=== PATIENT | female | born 1970 | race Caucasian/White ===

== ENCOUNTER 2018-12-06 10:44 | Emergency (ER) | payer OTHER ==
[2018-12-06] MEDS ORDERED: Aspirin 81 MG Tab.Chew PO ONE (10:49)
--- NOTE | 2018-12-06 10:50 | EDM.PDOC ---
ED HPI GENERAL MEDICAL PROBLEM - General Stated Complaint: chest pain Time Seen by Provider: 12/06/18 10:49 Source of Information: Reports: Patient - History of Present Illness INITIAL COMMENTS - FREE TEXT/NARRATIVE: HISTORY AND PHYSICAL: History of present illness: [Patient presents with right-sided chest pain which began yesterday she rates 7 out of 10 radiating to the back no fever nausea vomiting chills sweats no shortness breath or diaphoresis no headache dizziness or palpitation no bowel or urine symptoms, and is worsened by movement of the right arm Patient does not know of any injury or trauma however pain began yesterday morning after waking up from sleep her right side is hurting more as she tends to sleep on her right side left side also has discomfort with movement of the arm and around to her back with palpation of both shoulder girdles and pectoralis major I can reproduce symptoms She is allergic to aspirin ] Review of systems: As per history of present illness and below otherwise all systems reviewed and negative. Past medical history: As per history of present illness and as reviewed below otherwise noncontributory. Surgical history: As per history of present illness and as reviewed below otherwise noncontributory. Social history: No reported history of drug or alcohol abuse. Family history: As per history of present illness and as reviewed below otherwise noncontributory. Physical exam: HEENT: Atraumatic, normocephalic, pupils reactive, negative for conjunctival pallor or scleral icterus, mucous membranes moist, throat clear, neck supple, nontender, trachea midline. Lungs: Clear to auscultation, breath sounds equal bilaterally, chest tender over pectoralis major on the right Heart: S1S2, regular, negative for clicks, rubs, or JVD. Abdomen: Soft, nondistended, nontender. Negative for masses or hepatosplenomegaly. Negative for costovertebral tenderness. Pelvis: Stable nontender. Genitourinary: Deferred. Rectal: Deferred. Extremities: Atraumatic, negative for cords or calf pain. Neurovascular unremarkable. Neuro: Awake, alert, oriented. Cranial nerves II through XII unremarkable. Cerebellum unremarkable. Motor and sensory unremarkable throughout. Exam nonfocal. Diagnostics: [CBC CMP UA troponin lipase EKG Chest 1 view ] Therapeutics: [ normal saline Aspirin 324 mg chewable Toradol 30 mg IV Tramadol ] Impression: Musculoskeletal skeletal pain Definitive disposition and diagnosis as appropriate pending reevaluation and review of above. chest Pain Score (Numeric/FACES): 10 - Related Data Allergies Allergy/AdvReac Type Severity Reaction Status Date / Time acetaminophen Allergy Vomiting Verified 12/06/18 10:50 [From Tylenol-Codeine #3] aspirin Allergy Vomiting Verified 12/06/18 10:50 codeine Allergy Vomiting Verified 12/06/18 10:50 [From Tylenol-Codeine #3] Home Meds: Home Meds Methocarbamol 750 mg PO BID 12/06/18 [History] traMADol HCl [Tramadol HCl] 50 mg PO Q6HR PRN 12/06/18 [History] ED ROS GENERAL - Review of Systems Review Of Systems: See Below ED EXAM, GENERAL - Physical Exam Exam: See Below Course - Vital Signs Last Recorded V/S: Last Vital Signs Temp 98 F 12/06/18 10:50 Pulse 94 12/06/18 10:50 Resp 18 12/06/18 10:50 BP 121/53 L 12/06/18 10:50 Pulse Ox 95 12/06/18 10:50 - Orders/Labs/Meds Orders: Active Orders 24 hr Category Date Time Status EKG Documentation Completion [RC] STAT Care 12/06/18 10:48 Active Chest 1V Frontal [CR] Stat Exams 12/06/18 10:48 Taken UA RFX ZULEYKA AND CULT IF INDIC [URIN] Stat Lab 12/06/18 10:48 Ordered Sodium Chloride 0.9% [Normal Saline] 1,000 ml Med 12/06/18 11:00 Active IV STAT Medication Orders Sodium Chloride (Normal Saline) 1,000 mls @ 125 mls/hr IV STAT LEIGH ANN Last Admin: 12/06/18 10:58 Dose: 125 mls/hr Labs: Laboratory Tests 12/06/18 12/06/18 12/06/18 Range/Units 10:56 10:56 10:56 WBC 8.98 (4.0-11.0) K/uL RBC 5.23 (4.30-5.90) M/uL Hgb 15.8 (12.0-16.0) g/dL Hct 47.5 H (36.0-46.0) % MCV 90.8 (80.0-98.0) fL MCH 30.2 (27.0-32.0) pg MCHC 33.3 (31.0-37.0) g/dL RDW Std Deviation 46.9 (28.0-62.0) fl RDW Coeff of Anthony 14 (11.0-15.0) % Plt Count 256 (150-400) K/uL MPV 9.10 (7.40-12.00) fL Neut % (Auto) 61.5 (48.0-80.0) % Lymph % (Auto) 26.6 (16.0-40.0) % [place] % (Auto) 8.8 (0.0-15.0) % Eos % (Auto) 3.0 (0.0-7.0) % Baso % (Auto) 0.1 (0.0-1.5) % Neut # (Auto) 5.5 (1.4-5.7) K/uL Lymph # (Auto) 2.4 (0.6-2.4) K/uL [place] # (Auto) 0.8 (0.0-0.8) K/uL Eos # (Auto) 0.3 (0.0-0.7) K/uL Baso # (Auto) 0.0 (0.0-0.1) K/uL Nucleated RBC % 0.0 /100WBC Nucleated RBCs # 0 K/uL INR 1.03 Sodium 137 (136-145) mmol/L Potassium 4.5 (3.5-5.1) mmol/L Chloride 101 (98-107) mmol/L Carbon Dioxide 28.1 (21.0-32.0) mmol/L BUN 9 (7.0-18.0) mg/dL Creatinine 0.7 (0.6-1.0) mg/dL Est Cr Clr Drug Dosing 117.94 mL/min Estimated GFR (MDRD) > 60.0 ml/min Glucose 95 (74-106) mg/dL Calcium 9.2 (8.5-10.1) mg/dL Total Bilirubin 0.7 (0.2-1.0) mg/dL AST 13 L (15-37) IU/L ALT 24 (14-63) IU/L Alkaline Phosphatase 70 (46-116) U/L Troponin I < 0.050 (0.000-0.056) ng/mL Total Protein 8.0 (6.4-8.2) g/dL Albumin 4.0 (3.4-5.0) g/dL Globulin 4.0 (2.6-4.0) g/dL Albumin/Globulin Ratio 1.0 (0.9-1.6) Lipase 88 (73-393) U/L Meds: Medications Generic Name Dose Route Start Last Admin Trade Name Freq PRN Reason Stop Dose Admin Sodium Chloride 1,000 mls @ 125 mls/hr 12/06/18 11:00 12/06/18 10:58 Normal Saline IV 125 mls/hr STAT LEIGH ANN Administration Discontinued Medications Generic Name Dose Route Start Last Admin Trade Name Freq PRN Reason Stop Dose Admin Aspirin 324 mg 12/06/18 10:49 12/06/18 10:58 Aspirin PO 12/06/18 10:50 Not Given ONETIME ONE Ketorolac Tromethamine 30 mg 12/06/18 11:41 12/06/18 11:57 Toradol IVPUSH 12/06/18 11:42 30 mg ONETIME ONE Administration Departure - Departure Time of Disposition: 12:00 Disposition: Home, Self-Care 01 Condition: Good Clinical Impression: Musculoskeletal pain - Discharge Information Referrals: PCP,Unknown [Primary Care Provider] - Additional Instructions: The following information is given to patients seen in the emergency department who are being discharged to home. This information is to outline your options for follow-up care. We provide all patients seen in our emergency department with a follow-up referral. The need for follow-up, as well as the timing and circumstances, are variable depending upon the specifics of your emergency department visit. If you don't have a primary care physician on staff, we will provide you with a referral. We always advise you to contact your personal physician following an emergency department visit to inform them of the circumstance of the visit and for follow-up with them and/or the need for any referrals to a consulting specialist. The emergency department will also refer you to a specialist when appropriate. This referral assures that you have the opportunity for follow-up care with a specialist. All of these measure are taken in an effort to provide you with optimal care, which includes your follow-up. Under all circumstances we always encourage you to contact your private physician who remains a resource for coordinating your care. When calling for follow-up care, please make the office aware that this follow-up is from your recent emergency room visit. If for any reason you are refused follow-up, please contact the [facility] emergency department at and asked to speak to the emergency department charge nurse. - My Orders Last 24 Hours: My Active Orders 12/06/18 10:48 EKG Documentation Completion [RC] STAT Chest 1V Frontal [CR] Stat UA RFX ZULEYKA AND CULT IF INDIC [URIN] Stat 12/06/18 11:00 Sodium Chloride 0.9% [Normal Saline] 1,000 ml IV STAT - Assessment/Plan Last 24 Hours: My Active Orders 12/06/18 10:48 EKG Documentation Completion [RC] STAT Chest 1V Frontal [CR] Stat UA RFX ZULEYKA AND CULT IF INDIC [URIN] Stat 12/06/18 11:00 Sodium Chloride 0.9% [Normal Saline] 1,000 ml IV STAT
[2018-12-06] MEDS ORDERED: Sodium Chloride 0.9% 1,000 ML IV SCH (11:00)
[2018-12-06 11:40] LABS: CHLORIDE,CL 101 mmol/L (98-107); SODIUM,NA 137 mmol/L (136-145)
[2018-12-06] MEDS ORDERED: Ketorolac 30 MG/ML SDV IVPUSH ONE (11:41)
--- NOTE | 2018-12-06 12:27 | CR ---
INDICATION: Chest pain COMPARISON: none TECHNIQUE: Portable AP semi-erect chest performed at 11:22 a.m. FINDINGS: The lungs are clear. There is no evidence of pneumothorax. The heart, mediastinum and pulmonary vessels are of normal size. There is no evidence of pleural fluid. IMPRESSION: Negative chest. Dictated by Mark Caro MD @ Dec 06 2018 12:24PM Signed by Dr. Mark Caro @ Dec 06 2018 12:25PM
== END 2018-12-06 12:21 | disposition home or self-care (01) ==
LOC: MW.ED 10:44
DX: R07.89 Other chest pain (principal); Z88.8 Allergy status to other drugs, medicaments and biological substances; Z88.5 Allergy status to narcotic agent; Z79.899 Other long term (current) drug therapy
CPT/HCPCS: 36415; 71045; 80053; 83690; 84484; 85025; 85610; 96361; 96374; 99285; J1885; J7040; 99284

== ENCOUNTER 2020-05-16 09:20 | Emergency (ER) | payer OTHER ==
--- NOTE | 2020-05-16 09:35 | EDM.PDOC ---
ED HPI GENERAL MEDICAL PROBLEM - General Chief Complaint: Gastrointestinal Problem Stated Complaint: VOMITING Time Seen by Provider: 05/16/20 09:21 Source of Information: Reports: Patient History Limitations: Reports: No Limitations - History of Present Illness INITIAL COMMENTS - FREE TEXT/NARRATIVE: 49F PSHx cholecystectomy presents for abdominal cramping pain and N/V. Symptoms x3-4 days worsening. Notes inability to tolerate PO liquids or solids. Will vomit minutes after attempting PO liquids. Notes initial diarrhea but now no BM or passing gas x2 days. No h/o obstruction. No urinary symptoms Generalized Pain Score (Numeric/FACES): 4 - Related Data Allergies Allergy/AdvReac Type Severity Reaction Status Date / Time acetaminophen Allergy Vomiting Verified 05/16/20 09:44 [From Tylenol-Codeine #3] aspirin Allergy Vomiting Verified 05/16/20 09:44 codeine Allergy Vomiting Verified 05/16/20 09:44 [From Tylenol-Codeine #3] Home Meds: Home Meds methocarbamoL [Methocarbamol] 1,500 mg PO TID PRN 12/06/18 [History] traMADol HCl [Tramadol HCl] 50 mg PO Q6HR PRN 12/06/18 [History] Ondansetron [Zofran ODT] 4 mg PO Q6H PRN #10 tab.dis 05/16/20 [Rx] Sulfamethoxazole/Trimethoprim [Bactrim Ds Tablet] 1 each PO BID 7 Days #14 tablet 05/16/20 [Rx] Past Medical History [facility]ORCH [facility]URNER History: Reports: - Infectious Disease History Infectious Disease History: Reports: Chicken Pox - Past Surgical History GI Surgical History: Reports: Colonoscopy Female Surgical History: Reports: Section Other Female Surgeries/Procedures: cyst removal. Other Musculoskeletal Surgeries/Procedures:: knee surgery Social & Family History - Family History Family Medical History: Noncontributory ED ROS GENERAL - Review of Systems Review Of Systems: Comprehensive ROS is negative, except as noted in HPI. ED EXAM, GI/ABD - Physical Exam Exam: See Below Exam Limited By: No Limitations General Appearance: Alert, WD/WN, No Apparent Distress Ears: Normal External Exam Nose: Normal Inspection Throat/Mouth: Normal Inspection, Normal Voice, No Airway Compromise Head: Atraumatic, Normocephalic Neck: Normal Inspection Respiratory/Chest: No Respiratory Distress, Lungs Clear, Normal Breath Sounds, No Accessory Muscle Use Cardiovascular: Normal Peripheral Pulses, Regular Rate, Rhythm GI/Abdominal Exam: Soft, No Distention, Other (diffuse TTP without guarding/rebound ) Extremities: Normal Inspection Neurological: Alert Psychiatric: Normal Affect, Normal Mood Course - Vital Signs Last Recorded V/S: Last Vital Signs Temp 97.0 F 05/16/20 09:45 Pulse 76 05/16/20 13:00 Resp 15 05/16/20 13:00 BP 110/64 05/16/20 13:00 Pulse Ox 98 05/16/20 13:00 - Orders/Labs/Meds Orders: Active Orders 24 hr Category Date Time Status Sodium Chloride 0.9% [Saline Flush] Med 05/16/20 10:04 Active 10 ml FLUSH ASDIRECTED PRN Sodium Chloride 0.9% [Saline Flush] Med 05/16/20 10:04 Active 2.5 ml FLUSH ASDIRECTED PRN Saline Lock Insert [OM.PC] Stat Oth 05/16/20 10:04 Ordered Medication Orders Sodium Chloride (Saline Flush) 10 ml FLUSH ASDIRECTED PRN PRN Reason: Keep Vein Open Last Admin: 05/16/20 10:21 Dose: 10 ml Documented by: JANIYA Sodium Chloride (Saline Flush) 2.5 ml FLUSH ASDIRECTED PRN PRN Reason: Keep Vein Open Last Admin: 05/16/20 10:21 Dose: 2.5 ml Documented by: JANIYA Labs: Laboratory Tests 05/16/20 05/16/20 05/16/20 Range/Units 09:55 10:15 10:15 WBC 5.22 (4.0-11.0) K/uL RBC 5.07 (4.30-5.90) M/uL Hgb 16.0 (12.0-16.0) g/dL Hct 45.0 (36.0-46.0) % MCV 88.8 (80.0-98.0) fL MCH 31.6 (27.0-32.0) pg MCHC 35.6 (31.0-37.0) g/dL RDW Std Deviation 42.4 (28.0-62.0) fl RDW Coeff of Anthony 13 (11.0-15.0) % Plt Count 199 (150-400) K/uL MPV 10.40 (7.40-12.00) fL Neut % (Auto) 67.0 (48.0-80.0) % Lymph % (Auto) 18.4 (16.0-40.0) % [place] % (Auto) 14.4 (0.0-15.0) % Eos % (Auto) 0.0 (0.0-7.0) % Baso % (Auto) 0.2 (0.0-1.5) % Neut # (Auto) 3.5 (1.4-5.7) K/uL Lymph # (Auto) 1.0 (0.6-2.4) K/uL [place] # (Auto) 0.8 (0.0-0.8) K/uL Eos # (Auto) 0.0 (0.0-0.7) K/uL Baso # (Auto) 0.0 (0.0-0.1) K/uL Nucleated RBC % 0.0 /100WBC Nucleated RBCs # 0 K/uL Lactate 1.9 (0.20-2.00) mmol/L Sodium (136-145) mmol/L Potassium (3.5-5.1) mmol/L Chloride (98-107) mmol/L Carbon Dioxide (21.0-32.0) mmol/L BUN (7.0-18.0) mg/dL Creatinine (0.6-1.0) mg/dL Est Cr Clr Drug Dosing mL/min Estimated GFR (MDRD) ml/min Glucose (74-106) mg/dL Calcium (8.5-10.1) mg/dL Magnesium (1.8-2.4) mg/dL Total Bilirubin (0.2-1.0) mg/dL AST (15-37) IU/L ALT (14-63) IU/L Alkaline Phosphatase (46-116) U/L Total Protein (6.4-8.2) g/dL Albumin (3.4-5.0) g/dL Globulin (2.6-4.0) g/dL Albumin/Globulin Ratio (0.9-1.6) Lipase (73-393) U/L Urine Color DARK YELLOW Urine Appearance SLT CLOUDY Urine pH 6.0 (5.0-8.0) Ur Specific [place] >= 1.030 (1.001-1.035) Urine Protein 30 H (NEGATIVE) mg/dL Urine Glucose (UA) NEGATIVE (NEGATIVE) mg/dL Urine Ketones 40 H (NEGATIVE) mg/dL Urine Occult Blood TRACE-INTACT H (NEGATIVE) Urine Nitrite POSITIVE H (NEGATIVE) Urine Bilirubin MODERATE H (NEGATIVE) Urine Ictotest NEGATIVE Urine Urobilinogen 1.0 (<2.0) EU/dL Ur Leukocyte Esterase TRACE H (NEGATIVE) Urine RBC 0-5 (0-2/HPF) Urine WBC 5-10 (0-5/HPF) Ur Epithelial Cells MANY (NONE-FEW) Urine Bacteria 3+ H (NEGATIVE) 05/16/20 Range/Units 11:24 WBC (4.0-11.0) K/uL RBC (4.30-5.90) M/uL Hgb (12.0-16.0) g/dL Hct (36.0-46.0) % MCV (80.0-98.0) fL MCH (27.0-32.0) pg MCHC (31.0-37.0) g/dL RDW Std Deviation (28.0-62.0) fl RDW Coeff of Anthony (11.0-15.0) % Plt Count (150-400) K/uL MPV (7.40-12.00) fL Neut % (Auto) (48.0-80.0) % Lymph % (Auto) (16.0-40.0) % [place] % (Auto) (0.0-15.0) % Eos % (Auto) (0.0-7.0) % Baso % (Auto) (0.0-1.5) % Neut # (Auto) (1.4-5.7) K/uL Lymph # (Auto) (0.6-2.4) K/uL [place] # (Auto) (0.0-0.8) K/uL Eos # (Auto) (0.0-0.7) K/uL Baso # (Auto) (0.0-0.1) K/uL Nucleated RBC % /100WBC Nucleated RBCs # K/uL Lactate (0.20-2.00) mmol/L Sodium 138 (136-145) mmol/L Potassium 3.5 (3.5-5.1) mmol/L Chloride 101 (98-107) mmol/L Carbon Dioxide 26.9 (21.0-32.0) mmol/L BUN 15 (7.0-18.0) mg/dL Creatinine 0.7 (0.6-1.0) mg/dL Est Cr Clr Drug Dosing 116.63 mL/min Estimated GFR (MDRD) > 60.0 ml/min Glucose 114 H (74-106) mg/dL Calcium 8.3 L (8.5-10.1) mg/dL Magnesium 1.9 (1.8-2.4) mg/dL Total Bilirubin 0.4 (0.2-1.0) mg/dL AST 41 H (15-37) IU/L ALT 48 (14-63) IU/L Alkaline Phosphatase 54 (46-116) U/L Total Protein 7.4 (6.4-8.2) g/dL Albumin 3.5 (3.4-5.0) g/dL Globulin 3.9 (2.6-4.0) g/dL Albumin/Globulin Ratio 0.9 (0.9-1.6) Lipase 233 (73-393) U/L Urine Color Urine Appearance Urine pH (5.0-8.0) Ur Specific [place] (1.001-1.035) Urine Protein (NEGATIVE) mg/dL Urine Glucose (UA) (NEGATIVE) mg/dL Urine Ketones (NEGATIVE) mg/dL Urine Occult Blood (NEGATIVE) Urine Nitrite (NEGATIVE) Urine Bilirubin (NEGATIVE) Urine Ictotest Urine Urobilinogen (<2.0) EU/dL Ur Leukocyte Esterase (NEGATIVE) Urine RBC (0-2/HPF) Urine WBC (0-5/HPF) Ur Epithelial Cells (NONE-FEW) Urine Bacteria (NEGATIVE) Meds: Medications Generic Name Dose Route Start Last Admin Trade Name Freq PRN Reason Stop Dose Admin Sodium Chloride 10 ml 05/16/20 10:04 05/16/20 10:21 Saline Flush FLUSH 10 ml ASDIRECTED PRN Administration Keep Vein Open Sodium Chloride 2.5 ml 05/16/20 10:04 05/16/20 10:21 Saline Flush FLUSH 2.5 ml ASDIRECTED PRN Administration Keep Vein Open Discontinued Medications Generic Name Dose Route Start Last Admin Trade Name Freq PRN Reason Stop Dose Admin Ceftriaxone Sodium 1 gm 05/16/20 10:57 05/16/20 11:05 Rocephin IVPUSH 05/16/20 10:58 1 gm ONETIME ONE Administration Famotidine 20 mg 05/16/20 10:04 05/16/20 10:21 Pepcid IVPUSH 05/16/20 10:05 20 mg ONETIME ONE Administration Sodium Chloride 1,000 mls @ 999 mls/hr 05/16/20 10:04 05/16/20 10:21 Normal Saline IV 05/16/20 11:04 999 mls/hr .Bolus ONE Administration Sterile Water Confirm 05/16/20 11:01 05/16/20 11:05 Sterile Water For Injection Administered 05/16/20 11:02 2.1 mls/hr Dose Administration 20 mls @ as directed .ROUTE .STK-MED ONE Iopamidol 100 ml 05/16/20 12:56 05/16/20 12:57 Isovue Multipack-370 (76%) IVPUSH 05/16/20 12:57 100 ml ONETIME STA Administration Ondansetron HCl 4 mg 05/16/20 10:04 05/16/20 10:21 Zofran IVPUSH 05/16/20 10:05 4 mg ONETIME ONE Administration - Re-Assessments/Exams Free Text/Narrative Re-Assessment/Exam: 05/16/20 10:25 Will get labs, will treat symptomatically, will get CT to r/o SBO vs ileus vs other. 05/16/20 13:07 UA remarkable for nitrite positive UTI. CT is unremarkable. Patient feeling much better. Given 1x rocephin in ED. Will d/c with zofran and bactrim. SPoke with patient regarding diet including instructions for liquid diet then soft diet then transitioning to simple diet avoiding fried/fatty/spicy/tomato based foods. Patient understands. Departure - Departure Time of Disposition: 13:08 Disposition: Home, Self-Care 01 Condition: Good Clinical Impression: UTI, Urinary tract infectious disease - Discharge Information Prescriptions: Sulfamethoxazole/Trimethoprim [Bactrim Ds Tablet] 1 each PO BID 7 Days #14 tablet Ondansetron [Zofran ODT] 4 mg PO Q6H PRN #10 tab.dis PRN Reason: Nausea/Vomiting Instructions: Urinary Tract Infection, Adult, [id number] Referrals: Bill Duenas MD [Primary Care Provider] - Forms: ED Department Discharge Additional Instructions: The following information is given to patients seen in the emergency department who are being discharged to home. This information is to outline your options for follow-up care. We provide all patients seen in our emergency department with a follow-up referral. The need for follow-up, as well as the timing and circumstances, are variable depending upon the specifics of your emergency department visit. If you don't have a primary care physician on staff, we will provide you with a referral. We always advise you to contact your personal physician following an emergency department visit to inform them of the circumstance of the visit and for follow-up with them and/or the need for any referrals to a consulting specialist. The emergency department will also refer you to a specialist when appropriate. This referral assures that you have the opportunity for follow-up care with a specialist. All of these measure are taken in an effort to provide you with optimal care, which includes your follow-up. Under all circumstances we always encourage you to contact your private physician who remains a resource for coordinating your care. When calling for follow-up care, please make the office aware that this follow-up is from your recent emergency room visit. If for any reason you are refused follow-up, please contact the [facility] Emergency Department at and asked to speak to the emergency department charge nurse. Please follow up with your primary care physician. If you do not have a primary care physician, see below: [facility] [address] [place] [id number] [facility] [place] [address] [place] [id number] Sepsis Event Note (ED) - Focused Exam Vital Signs: Vital Signs Temp Pulse Resp BP Pulse Ox 05/16/20 13:00 76 15 110/64 98 05/16/20 10:56 73 15 124/95 H 96 05/16/20 09:45 97.0 F 88 14 123/76 96 - My Orders Last 24 Hours: My Active Orders 05/16/20 10:04 Sodium Chloride 0.9% [Saline Flush] 10 ml FLUSH ASDIRECTED PRN Sodium Chloride 0.9% [Saline Flush] 2.5 ml FLUSH ASDIRECTED PRN Saline Lock Insert [OM.PC] Stat - Assessment/Plan Last 24 Hours: My Active Orders 05/16/20 10:04 Sodium Chloride 0.9% [Saline Flush] 10 ml FLUSH ASDIRECTED PRN Sodium Chloride 0.9% [Saline Flush] 2.5 ml FLUSH ASDIRECTED PRN Saline Lock Insert [OM.PC] Stat
[2020-05-16] MEDS ORDERED: Sodium Chloride 0.9% 1,000 ML IV ONE (10:04)
[2020-05-16] MEDS ORDERED: Sodium Chloride 0.9% 2.5 ML Syringe FLUSH PRN (10:04)
[2020-05-16] MEDS ORDERED: Famotidine 20 MG/2 ML SDV IVPUSH ONE (10:04)
[2020-05-16] MEDS ORDERED: Ondansetron 4 MG/2 ML SDV IVPUSH ONE (10:04)
[2020-05-16] MEDS ORDERED: Sodium Chloride 0.9% 10 ML Syringe FLUSH PRN (10:04)
[2020-05-16] MEDS ORDERED: cefTRIAXone 1 GM Vial IVPUSH ONE (10:57)
[2020-05-16] MEDS ORDERED: Water For Injection, Sterile 20 ML ONE (11:01)
[2020-05-16 11:55] LABS: BLOOD UREA NITROGEN,BUN 15 mg/dL (7.0-18.0); CARBON DIOXIDE,CO2 26.9 mmol/L (21.0-32.0); CHLORIDE,CL 101 mmol/L (98-107); GLUCOSE RANDOM 114 mg/dL (74-106); LIPASE 233 U/L (73-393); POTASSIUM,K 3.5 mmol/L (3.5-5.1); SODIUM,NA 138 mmol/L (136-145)
[2020-05-16] MEDS ORDERED: Iopamidol 755 MG/ML 500 ML Multipack Bottle IVPUSH STA (12:56)
--- NOTE | 2020-05-16 13:01 | CT ---
CT abdomen and pelvis Technique: Multiple axial sections were obtained from above the dome of the diaphragm inferiorly through the pubic symphysis. Intravenous contrast was utilized. No oral contrast has been given. Comparison: No prior abdominal imaging is available. Findings: Several small parenchymal densities are seen with the left lung base. Minimal densities within the right middle lobe and right lower lung are also seen. Given the multifocal nature of these findings this raises the possibility of viral pneumonia. Lipoma appears to be present within the right paraspinal muscle measuring about 4.7 cm. Liver shows diffuse fatty infiltration. No focal abnormalities appreciated within the liver. Spleen appears within normal limits. Adrenal glands show no nodule. Pancreas shows no discrete abnormality. Both kidneys show symmetric contrast enhancement. Cyst is noted within the left kidney measuring 2.8 cm. Kidneys are otherwise unremarkable. Aorta shows no aneurysm. No retroperitoneal adenopathy or mesenteric abnormalities are seen. No pelvic mass or adenopathy is seen. Appendix not definitely visualized. Scoliosis and diffuse degenerative change is noted within the spine. Impression: 1. Small parenchymal densities within both lung bases. Given the multifocal nature of these findings, viral pneumonia is a possibility. Please correlate. 2. Fatty infiltration within the liver. Lipoma which is incidental within the right paraspinal muscle. 3. Nothing acute is otherwise appreciated. Diagnostic code #3 This report was dictated in MDT
== END 2020-05-16 13:47 | disposition home or self-care (01) ==
LOC: MW.ED 09:20
DX: N39.0 Urinary tract infection, site not specified (principal); Z88.6 Allergy status to analgesic agent; Z88.5 Allergy status to narcotic agent; Z79.899 Other long term (current) drug therapy
CPT/HCPCS: 36415; 74177; 80053; 81001; 83605; 83690; 83735; 85025; 96361; 96374; 96375; 99284; J0696; J2405; J3490; J7030; Q9967

== ENCOUNTER 2020-05-17 12:19 | Observation (INO) | payer OTHER ==
[2020-05-17] MEDS ORDERED: Sodium Chloride 0.9% 2.5 ML Syringe FLUSH PRN (14:39)
[2020-05-17] MEDS ORDERED: Sodium Chloride 0.9% 1,000 ML IV ONE ×2 (14:39→16:56)
[2020-05-17] MEDS ORDERED: Sodium Chloride 0.9% 10 ML Syringe FLUSH PRN (14:39)
[2020-05-17] MEDS ORDERED: Ondansetron 4 MG/2 ML SDV IVPUSH ONE (14:43)
[2020-05-17] MEDS ORDERED: Morphine 4 MG/ML Syringe IVPUSH ONE (14:43)
--- NOTE | 2020-05-17 14:47 | EDM.PDOC ---
ED HPI GENERAL MEDICAL PROBLEM - General Chief Complaint: Gastrointestinal Problem Stated Complaint: ABDOMINAL PAIN Time Seen by Provider: 05/17/20 12:59 Source of Information: Reports: Patient History Limitations: Reports: No Limitations - History of Present Illness INITIAL COMMENTS - FREE TEXT/NARRATIVE: 49F presents for abdominal pain. Patient was seen for same yesterday. Notes that since discharge she has been unable to keep down her antibiotics for recently diagnosed UTI. She notes worsening abdominal distention and still hasn't had a bowel movement or passed gas. She looks much more uncomfortable today. She denies fevers, dysuria, hematuria. Headache Pain Score (Numeric/FACES): 10 - Related Data Allergies Allergy/AdvReac Type Severity Reaction Status Date / Time acetaminophen Allergy Vomiting Verified 05/16/20 09:44 [From Tylenol-Codeine #3] aspirin Allergy Vomiting Verified 05/16/20 09:44 codeine Allergy Vomiting Verified 05/16/20 09:44 [From Tylenol-Codeine #3] Home Meds: Home Meds methocarbamoL [Methocarbamol] 1,500 mg PO TID PRN 12/06/18 [History] traMADol HCl [Tramadol HCl] 50 mg PO Q6HR PRN 12/06/18 [History] Ondansetron [Zofran ODT] 4 mg PO Q6H PRN #10 tab.dis 05/16/20 [Rx] Sulfamethoxazole/Trimethoprim [Bactrim Ds Tablet] 1 each PO BID 7 Days #14 tablet 05/16/20 [Rx] Past Medical History HEENT History: Reports: Impaired Vision Cardiovascular History: Reports: None Respiratory History: Reports: None Gastrointestinal History: Reports: None Genitourinary History: Reports: None CLAIMS CONSULTANT History: Reports: Musculoskeletal History: Reports: None Other Musculoskeletal History: Chronic Neck Pain Neurological History: Reports: None Psychiatric History: Reports: None Endocrine/Metabolic History: Reports: None Hematologic History: Reports: None Immunologic History: Reports: None Oncologic (Cancer) History: Reports: None - Infectious Disease History Infectious Disease History: Reports: Chicken Pox - Past Surgical History Head Surgeries/Procedures: Reports: None GI Surgical History: Reports: Cholecystectomy, Colonoscopy Female Surgical History: Reports: Section Other Female Surgeries/Procedures: cyst removal. Other Musculoskeletal Surgeries/Procedures:: knee surgery Social & Family History - Family History Family Medical History: Noncontributory - Tobacco Use Smoking Status *Q: Never Smoker Second Hand Smoke Exposure: Yes - Caffeine Use Caffeine Use: Reports: None - Recreational Drug Use Recreational Drug Use: No ED ROS GENERAL - Review of Systems Review Of Systems: Comprehensive ROS is negative, except as noted in HPI. ED EXAM, GI/ABD - Physical Exam Exam: See Below Exam Limited By: No Limitations General Appearance: Alert, WD/WN, No Apparent Distress Ears: Normal External Exam Nose: Normal Inspection Throat/Mouth: Normal Inspection, Normal Voice, No Airway Compromise Head: Atraumatic, Normocephalic Neck: Normal Inspection Respiratory/Chest: No Respiratory Distress, Lungs Clear, Normal Breath Sounds, No Accessory Muscle Use Cardiovascular: Normal Peripheral Pulses, Regular Rate, Rhythm GI/Abdominal Exam: Soft, No Distention, Other (diffuse TTP w/ guarding) Extremities: Normal Inspection Neurological: Alert Psychiatric: Normal Affect, Normal Mood Skin Exam: Warm, Dry, Intact Course - Vital Signs Last Recorded V/S: Last Vital Signs Temp 96.3 F L 05/17/20 12:34 Pulse 70 05/17/20 16:10 Resp 20 05/17/20 16:10 BP 107/59 L 05/17/20 16:10 Pulse Ox 97 05/17/20 16:10 - Orders/Labs/Meds Orders: Active Orders 24 hr Category Date Time Status Patient Status [ADT] Routine ADT 05/17/20 17:16 Ordered Cardiac Monitoring [RC] . DIRECTED Care 05/17/20 14:41 Active Pulse Oximetry [RC] ASDIRECTED Care 05/17/20 14:41 Active COMPREHENSIVE METABOLIC PN,CMP [CHEM] Stat Lab 05/17/20 14:40 Received CORONAVIRUS COVID-19 PCR PHL Stat Lab 05/17/20 16:19 Received CORONAVIRUS COVID-19 PCR PHL Stat Lab 05/17/20 17:12 Ordered LIPASE [CHEM] Stat Lab 05/17/20 14:40 Received MAGNESIUM [CHEM] Stat Lab 05/17/20 14:40 Received UA W/ZULEYKA RFLX IF INDICATED [URIN] Stat Lab 05/17/20 14:42 Ordered Sodium Chloride 0.9% [Normal Saline] 1,000 ml Med 05/17/20 16:56 Active IV .Bolus Sodium Chloride 0.9% [Normal Saline] 1,000 ml Med 05/17/20 17:00 Active IV ASDIRECTED Sodium Chloride 0.9% [Saline Flush] Med 05/17/20 14:39 Active 10 ml FLUSH ASDIRECTED PRN Sodium Chloride 0.9% [Saline Flush] Med 05/17/20 14:39 Active 2.5 ml FLUSH ASDIRECTED PRN Saline Lock Insert [OM.PC] Stat Oth 05/17/20 14:41 Ordered Medication Orders Sodium Chloride (Normal Saline) 1,000 mls @ 999 mls/hr IV ASDIRECTED LEIGH ANN Sodium Chloride (Normal Saline) 1,000 mls @ 999 mls/hr IV .Bolus ONE Stop: 05/17/20 17:56 Last Admin: 05/17/20 17:12 Dose: 999 mls/hr Documented by: TOM Sodium Chloride (Saline Flush) 10 ml FLUSH ASDIRECTED PRN PRN Reason: Keep Vein Open Last Admin: 05/17/20 15:22 Dose: 10 ml Documented by: LAUREN Sodium Chloride (Saline Flush) 2.5 ml FLUSH ASDIRECTED PRN PRN Reason: Keep Vein Open Last Admin: 05/17/20 15:22 Dose: 2.5 ml Documented by: LAUREN Labs: Laboratory Tests 05/17/20 05/17/20 05/17/20 Range/Units 14:16 14:16 14:40 WBC (4.0-11.0) K/uL RBC (4.30-5.90) M/uL Hgb (12.0-16.0) g/dL Hct (36.0-46.0) % MCV (80.0-98.0) fL MCH (27.0-32.0) pg MCHC (31.0-37.0) g/dL RDW Std Deviation (28.0-62.0) fl RDW Coeff of Anthony (11.0-15.0) % Plt Count (150-400) K/uL MPV (7.40-12.00) fL Neut % (Auto) (48.0-80.0) % Lymph % (Auto) (16.0-40.0) % Windsor % (Auto) (0.0-15.0) % Eos % (Auto) (0.0-7.0) % Baso % (Auto) (0.0-1.5) % Neut # (Auto) (1.4-5.7) K/uL Lymph # (Auto) (0.6-2.4) K/uL Windsor # (Auto) (0.0-0.8) K/uL Eos # (Auto) (0.0-0.7) K/uL Baso # (Auto) (0.0-0.1) K/uL Nucleated RBC % /100WBC Nucleated RBCs # K/uL Lactate 2.2 H* (0.20-2.00) mmol/L Urine Color YELLOW Urine Appearance HAZY Urine pH 6.5 (5.0-8.0) Ur Specific Marvell >= 1.030 (1.001-1.035) Urine Protein TRACE H (NEGATIVE) mg/dL Urine Glucose (UA) NEGATIVE (NEGATIVE) mg/dL Urine Ketones NEGATIVE (NEGATIVE) mg/dL Urine Occult Blood NEGATIVE (NEGATIVE) Urine Nitrite NEGATIVE (NEGATIVE) Urine Bilirubin SMALL H (NEGATIVE) Urine Ictotest NEGATIVE Urine Urobilinogen 2.0 H (<2.0) EU/dL Ur Leukocyte Esterase NEGATIVE (NEGATIVE) Urine RBC 0-2 (0-2/HPF) Urine WBC 0-4 (0-5/HPF) Ur Epithelial Cells FEW (NONE-FEW) Urine Bacteria FEW (NEGATIVE) Urine Mucus LIGHT (NONE-MOD) Urine HCG, Qual NEGATIVE (NEGATIVE) SARS CoV-2 RNA Rapid LAVERN (NEGATIVE) 05/17/20 05/17/20 Range/Units 14:40 16:19 WBC 4.41 (4.0-11.0) K/uL RBC 4.89 (4.30-5.90) M/uL Hgb 14.8 (12.0-16.0) g/dL Hct 43.3 (36.0-46.0) % MCV 88.5 (80.0-98.0) fL MCH 30.3 (27.0-32.0) pg MCHC 34.2 (31.0-37.0) g/dL RDW Std Deviation 42.6 (28.0-62.0) fl RDW Coeff of Anthony 13 (11.0-15.0) % Plt Count 181 (150-400) K/uL MPV 9.30 (7.40-12.00) fL Neut % (Auto) 63.9 (48.0-80.0) % Lymph % (Auto) 23.4 (16.0-40.0) % Windsor % (Auto) 12.5 (0.0-15.0) % Eos % (Auto) 0.0 (0.0-7.0) % Baso % (Auto) 0.2 (0.0-1.5) % Neut # (Auto) 2.8 (1.4-5.7) K/uL Lymph # (Auto) 1.0 (0.6-2.4) K/uL Windsor # (Auto) 0.6 (0.0-0.8) K/uL Eos # (Auto) 0.0 (0.0-0.7) K/uL Baso # (Auto) 0.0 (0.0-0.1) K/uL Nucleated RBC % 0.0 /100WBC Nucleated RBCs # 0 K/uL Lactate (0.20-2.00) mmol/L Urine Color Urine Appearance Urine pH (5.0-8.0) Ur Specific Marvell (1.001-1.035) Urine Protein (NEGATIVE) mg/dL Urine Glucose (UA) (NEGATIVE) mg/dL Urine Ketones (NEGATIVE) mg/dL Urine Occult Blood (NEGATIVE) Urine Nitrite (NEGATIVE) Urine Bilirubin (NEGATIVE) Urine Ictotest Urine Urobilinogen (<2.0) EU/dL Ur Leukocyte Esterase (NEGATIVE) Urine RBC (0-2/HPF) Urine WBC (0-5/HPF) Ur Epithelial Cells (NONE-FEW) Urine Bacteria (NEGATIVE) Urine Mucus (NONE-MOD) Urine HCG, Qual (NEGATIVE) SARS CoV-2 RNA Rapid LAVERN POSITIVE H (NEGATIVE) Meds: Medications Generic Name Dose Route Start Last Admin Trade Name Freq PRN Reason Stop Dose Admin Sodium Chloride 1,000 mls @ 999 mls/hr 05/17/20 17:00 Normal Saline IV ASDIRECTED LEIGH ANN Sodium Chloride 1,000 mls @ 999 mls/hr 05/17/20 16:56 05/17/20 17:12 Normal Saline IV 05/17/20 17:56 999 mls/hr .Bolus ONE Administration Sodium Chloride 10 ml 05/17/20 14:39 05/17/20 15:22 Saline Flush FLUSH 10 ml ASDIRECTED PRN Administration Keep Vein Open Sodium Chloride 2.5 ml 05/17/20 14:39 05/17/20 15:22 Saline Flush FLUSH 2.5 ml ASDIRECTED PRN Administration Keep Vein Open Discontinued Medications Generic Name Dose Route Start Last Admin Trade Name Freq PRN Reason Stop Dose Admin Sodium Chloride 1,000 mls @ 999 mls/hr 05/17/20 14:39 05/17/20 15:17 Normal Saline IV 05/17/20 15:39 999 mls/hr .Bolus ONE Administration Metoclopramide HCl 10 mg 05/17/20 15:59 05/17/20 16:08 Reglan IVPUSH 05/17/20 16:00 10 mg ONETIME ONE Administration Morphine Sulfate 4 mg 05/17/20 14:43 05/17/20 15:16 Morphine IVPUSH 05/17/20 14:44 4 mg ONETIME ONE Administration Ondansetron HCl 4 mg 05/17/20 14:43 05/17/20 15:17 Zofran IVPUSH 05/17/20 14:44 4 mg ONETIME ONE Administration Sodium Chloride 1,000 ml 05/17/20 16:52 05/17/20 16:55 Normal Saline IV 05/17/20 16:53 Not Given ONETIME ONE - Re-Assessments/Exams Free Text/Narrative Re-Assessment/Exam: 05/17/20 14:46 Will get repeat labs, CT, will treat symptomatically 05/17/20 17:16 COVID positive. Elevated lactate. Additiona 1-L IVFB ordered. Patient vomiting despite multiple rounds of antiemetic. Will admit to obs Dr. Nguyen for +COVID and inability to tolerate PO. Departure - Departure Time of Disposition: 17:17 Disposition: Admitted As Inpatient 64 Condition: Good Clinical Impression: COVID-19 - Discharge Information Referrals: Bill Duenas MD [Primary Care Provider] - Forms: ED Department Discharge Sepsis Event Note (ED) - Evaluation Sepsis Screening Result: No Definite Risk - Focused Exam Vital Signs: Vital Signs Temp Pulse Resp BP Pulse Ox 05/17/20 16:10 70 20 107/59 L 97 05/17/20 12:34 96.3 F L 85 20 109/63 95 - My Orders Last 24 Hours: My Active Orders 05/17/20 14:39 Sodium Chloride 0.9% [Saline Flush] 10 ml FLUSH ASDIRECTED PRN Sodium Chloride 0.9% [Saline Flush] 2.5 ml FLUSH ASDIRECTED PRN 05/17/20 14:40 COMPREHENSIVE METABOLIC PN,CMP [CHEM] Stat LIPASE [CHEM] Stat MAGNESIUM [CHEM] Stat 05/17/20 14:41 Cardiac Monitoring [RC] . DIRECTED Pulse Oximetry [RC] ASDIRECTED Saline Lock Insert [OM.PC] Stat 05/17/20 14:42 UA W/ZULEYKA RFLX IF INDICATED [URIN] Stat 05/17/20 16:19 CORONAVIRUS COVID-19 PCR PHL Stat 05/17/20 16:56 Sodium Chloride 0.9% [Normal Saline] 1,000 ml IV .Bolus 05/17/20 17:00 Sodium Chloride 0.9% [Normal Saline] 1,000 ml IV ASDIRECTED 05/17/20 17:12 CORONAVIRUS COVID-19 PCR PHL Stat 05/17/20 17:16 Patient Status [ADT] Routine - Assessment/Plan Last 24 Hours: My Active Orders 05/17/20 14:39 Sodium Chloride 0.9% [Saline Flush] 10 ml FLUSH ASDIRECTED PRN Sodium Chloride 0.9% [Saline Flush] 2.5 ml FLUSH ASDIRECTED PRN 05/17/20 14:40 COMPREHENSIVE METABOLIC PN,CMP [CHEM] Stat LIPASE [CHEM] Stat MAGNESIUM [CHEM] Stat 05/17/20 14:41 Cardiac Monitoring [RC] . DIRECTED Pulse Oximetry [RC] ASDIRECTED Saline Lock Insert [OM.PC] Stat 05/17/20 14:42 UA W/ZULEYKA RFLX IF INDICATED [URIN] Stat 05/17/20 16:19 CORONAVIRUS COVID-19 PCR PHL Stat 05/17/20 16:56 Sodium Chloride 0.9% [Normal Saline] 1,000 ml IV .Bolus 05/17/20 17:00 Sodium Chloride 0.9% [Normal Saline] 1,000 ml IV ASDIRECTED 05/17/20 17:12 CORONAVIRUS COVID-19 PCR PHL Stat 05/17/20 17:16 Patient Status [ADT] Routine
[2020-05-17] MEDS ORDERED: Metoclopramide 10 MG/2 ML SDV IVPUSH ONE (15:59)
--- NOTE | 2020-05-17 16:41 | CT ---
INDICATION: Increasing abdominal pain. CT ABDOMEN AND PELVIS WITH CONTRAST TECHNIQUE: Multidetector CT imaging was performed through the abdomen and pelvis following intravenous contrast administration using 100 mL Isovue 370. Coronal and sagittal reconstructions were generated. COMPARISON: 05/16/2020 CT abdomen and pelvis. FINDINGS: Lower chest: No significant change in patchy infiltrates involving both lung bases. Liver: Diffuse fatty infiltration of the liver. Gallbladder and bile ducts: Status post cholecystectomy, as before. No biliary dilation identified. Pancreas: Unremarkable. Spleen: Unchanged mild splenomegaly measuring 14.5 centimeters. Adrenals: No nodules or masses. Kidneys, ureters, and urinary bladder: Small nonobstructing left intrarenal stone. Small left renal cyst. No hydronephrosis involving either kidney. Incompletely distended urinary bladder. No bladder mass or definite wall thickening. Gastrointestinal tract: Normal caliber bowel without wall thickening or obstruction. Appendix not identified. Vascular structures: Normal for age. Peritoneum: No free air, abscess, or significant free fluid. Lymph nodes: No pathologically enlarged nodes identified. Reproductive organs: No pelvic masses. Bones: Spinal degenerative changes. Chronic bilateral L5 pars defects with minimal L5-S1 spondylolisthesis. Incidental lipoma in the posterior right thoracolumbar paraspinous musculature. IMPRESSION: 1. No significant change in patchy bilateral basilar pulmonary infiltrates, favored to represent atypical pneumonia. COVID-19 is not excluded. 2. No acute intra-abdominal abnormality identified. 3. Nonacute findings as detailed above. KAL ROBLES MD [employer] [facility] Dictated by Jeffrey Robles MD @ 05/17/2020 4:39:02 PM Dictated by: Jeffrey Robles MD @ 05/17/2020 16:39:37 (Electronically Signed)
[2020-05-17] MEDS ORDERED: Sodium Chloride 0.9% 10 ML SDV IV ONE (16:52)
[2020-05-17] MEDS ORDERED: Sodium Chloride 0.9% 1,000 ML IV SCH (17:00)
[2020-05-17 17:30] LABS: BLOOD UREA NITROGEN,BUN 10 mg/dL (7.0-18.0); CARBON DIOXIDE,CO2 27.9 mmol/L (21.0-32.0); CHLORIDE,CL 101 mmol/L (98-107); GLUCOSE RANDOM 105 mg/dL (74-106); LIPASE 214 U/L (73-393); POTASSIUM,K 3.9 mmol/L (3.5-5.1); SODIUM,NA 139 mmol/L (136-145)
[2020-05-17] MEDS ORDERED: Iopamidol 755 MG/ML 500 ML Multipack Bottle IVPUSH STA (19:27)
[2020-05-17] MEDS ORDERED: cefTRIAXone 1 GM in Sodium Chloride 0.9% 50 ML IV SCH (23:15)
--- NOTE | 2020-05-17 23:35 | PCM.HP.2 ---
H&P History of Present Illness - General Date of Service: 05/17/20 Admit Problem/Dx: Admission Diagnosis/Problem Admission Diagnosis/Problem Abdominal pain - History of Present Illness Initial Comments - Free Text/Narative: 49 yo female who presents with several day history of abdominal pain, nausea and vomiting. PAtient was seen yesterday in ED and given Bactrim for treatment UTI. Patient presents again to the ED with same GI symptoms. CT scan of abdomen reported ground glass opacities in the lungs bilaterally. She tested positive for COVID. Headache Pain Score (Numeric/FACES): 10 - Related Data Allergies/Adverse Reactions: Allergies Allergy/AdvReac Type Severity Reaction Status Date / Time acetaminophen Allergy Vomiting Verified 05/17/20 20:42 [From Tylenol-Codeine #3] aspirin Allergy Vomiting Verified 05/17/20 20:42 codeine Allergy Vomiting Verified 05/17/20 20:42 [From Tylenol-Codeine #3] Home Medications: Home Meds methocarbamoL [Methocarbamol] 1,500 mg PO TID PRN 12/06/18 [History] traMADol HCl [Tramadol HCl] 50 mg PO Q6HR PRN 12/06/18 [History] Ondansetron [Zofran ODT] 4 mg PO Q6H PRN #10 tab.dis 05/16/20 [Rx] Sulfamethoxazole/Trimethoprim [Bactrim Ds Tablet] 1 each PO BID 7 Days #14 tablet 05/16/20 [Rx] Past Medical History HEENT History: Reports: Impaired Vision Cardiovascular History: Reports: None Respiratory History: Reports: None Gastrointestinal History: Reports: None Genitourinary History: Reports: None 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: Musculoskeletal History: Reports: None Other Musculoskeletal History: Chronic Neck Pain Neurological History: Reports: None Psychiatric History: Reports: None Endocrine/Metabolic History: Reports: None Hematologic History: Reports: None Immunologic History: Reports: None Oncologic (Cancer) History: Reports: None - Infectious Disease History Infectious Disease History: Reports: Chicken Pox - Past Surgical History Head Surgeries/Procedures: Reports: None GI Surgical History: Reports: Cholecystectomy, Colonoscopy Female Surgical History: Reports: Section Other Female Surgeries/Procedures: cyst removal. Other Musculoskeletal Surgeries/Procedures:: knee surgery Social & Family History - Family History Family Medical History: Noncontributory - Tobacco Use Smoking Status *Q: Never Smoker Second Hand Smoke Exposure: No - Caffeine Use Caffeine Use: Reports: None - Recreational Drug Use Recreational Drug Use: No H&P Review of Systems - Review of Systems: Review Of Systems: Comprehensive ROS is negative, except as noted in HPI. Exam - Exam Exam: See Below - Vital Signs Vital Signs: Last Vital Signs Temp 37.1 C 05/17/20 18:12 Pulse 82 05/17/20 18:12 Resp 17 05/17/20 18:12 BP 108/41 L 05/17/20 18:12 Pulse Ox 98 05/17/20 18:12 Weight: 149.685 kg - Exam General: Alert, Oriented HEENT: Mucosa Moist & [place] Neck: Supple Lungs: Clear to Auscultation, Normal Respiratory Effort Cardiovascular: Regular Rate, Regular Rhythm GI/Abdominal Exam: Normal Bowel Sounds, Soft, Non-Tender, No Distention Extremities: Non-Tender, No Pedal Edema Skin: Warm, Dry, Intact - Patient Data Lab Results Last 24 hrs: Laboratory Results - last 24 hr 05/17/20 05/17/20 05/17/20 Range/Units 14:16 14:16 14:40 WBC (4.0-11.0) K/uL RBC (4.30-5.90) M/uL Hgb (12.0-16.0) g/dL Hct (36.0-46.0) % MCV (80.0-98.0) fL MCH (27.0-32.0) pg MCHC (31.0-37.0) g/dL RDW Std Deviation (28.0-62.0) fl RDW Coeff of Anthony (11.0-15.0) % Plt Count (150-400) K/uL MPV (7.40-12.00) fL Neut % (Auto) (48.0-80.0) % Lymph % (Auto) (16.0-40.0) % Iron % (Auto) (0.0-15.0) % Eos % (Auto) (0.0-7.0) % Baso % (Auto) (0.0-1.5) % Neut # (Auto) (1.4-5.7) K/uL Lymph # (Auto) (0.6-2.4) K/uL Iron # (Auto) (0.0-0.8) K/uL Eos # (Auto) (0.0-0.7) K/uL Baso # (Auto) (0.0-0.1) K/uL Nucleated RBC % /100WBC Nucleated RBCs # K/uL Lactate 2.2 H* (0.20-2.00) mmol/L Sodium (136-145) mmol/L Potassium (3.5-5.1) mmol/L Chloride (98-107) mmol/L Carbon Dioxide (21.0-32.0) mmol/L BUN (7.0-18.0) mg/dL Creatinine (0.6-1.0) mg/dL Est Cr Clr Drug Dosing mL/min Estimated GFR (MDRD) ml/min Glucose (74-106) mg/dL Calcium (8.5-10.1) mg/dL Magnesium (1.8-2.4) mg/dL Total Bilirubin (0.2-1.0) mg/dL AST (15-37) IU/L ALT (14-63) IU/L Alkaline Phosphatase (46-116) U/L Total Protein (6.4-8.2) g/dL Albumin (3.4-5.0) g/dL Globulin (2.6-4.0) g/dL Albumin/Globulin Ratio (0.9-1.6) Lipase (73-393) U/L Urine Color YELLOW Urine Appearance HAZY Urine pH 6.5 (5.0-8.0) Ur Specific [place] >= 1.030 (1.001-1.035) Urine Protein TRACE H (NEGATIVE) mg/dL Urine Glucose (UA) NEGATIVE (NEGATIVE) mg/dL Urine Ketones NEGATIVE (NEGATIVE) mg/dL Urine Occult Blood NEGATIVE (NEGATIVE) Urine Nitrite NEGATIVE (NEGATIVE) Urine Bilirubin SMALL H (NEGATIVE) Urine Ictotest NEGATIVE Urine Urobilinogen 2.0 H (<2.0) EU/dL Ur Leukocyte Esterase NEGATIVE (NEGATIVE) Urine RBC 0-2 (0-2/HPF) Urine WBC 0-4 (0-5/HPF) Ur Epithelial Cells FEW (NONE-FEW) Urine Bacteria FEW (NEGATIVE) Urine Mucus LIGHT (NONE-MOD) Urine HCG, Qual NEGATIVE (NEGATIVE) SARS-CoV-2 RNA (LAVERN) (NEGATIVE) SARS CoV-2 RNA Rapid LAVERN (NEGATIVE) 05/17/20 05/17/20 05/17/20 Range/Units 14:40 14:40 16:19 WBC 4.41 (4.0-11.0) K/uL RBC 4.89 (4.30-5.90) M/uL Hgb 14.8 (12.0-16.0) g/dL Hct 43.3 (36.0-46.0) % MCV 88.5 (80.0-98.0) fL MCH 30.3 (27.0-32.0) pg MCHC 34.2 (31.0-37.0) g/dL RDW Std Deviation 42.6 (28.0-62.0) fl RDW Coeff of Anthony 13 (11.0-15.0) % Plt Count 181 (150-400) K/uL MPV 9.30 (7.40-12.00) fL Neut % (Auto) 63.9 (48.0-80.0) % Lymph % (Auto) 23.4 (16.0-40.0) % Iron % (Auto) 12.5 (0.0-15.0) % Eos % (Auto) 0.0 (0.0-7.0) % Baso % (Auto) 0.2 (0.0-1.5) % Neut # (Auto) 2.8 (1.4-5.7) K/uL Lymph # (Auto) 1.0 (0.6-2.4) K/uL Iron # (Auto) 0.6 (0.0-0.8) K/uL Eos # (Auto) 0.0 (0.0-0.7) K/uL Baso # (Auto) 0.0 (0.0-0.1) K/uL Nucleated RBC % 0.0 /100WBC Nucleated RBCs # 0 K/uL Lactate (0.20-2.00) mmol/L Sodium 139 (136-145) mmol/L Potassium 3.9 (3.5-5.1) mmol/L Chloride 101 (98-107) mmol/L Carbon Dioxide 27.9 (21.0-32.0) mmol/L BUN 10 (7.0-18.0) mg/dL Creatinine 0.7 (0.6-1.0) mg/dL Est Cr Clr Drug Dosing 116.63 mL/min Estimated GFR (MDRD) > 60.0 ml/min Glucose 105 (74-106) mg/dL Calcium 8.2 L (8.5-10.1) mg/dL Magnesium 1.9 (1.8-2.4) mg/dL Total Bilirubin 0.4 (0.2-1.0) mg/dL AST 39 H (15-37) IU/L ALT 48 (14-63) IU/L Alkaline Phosphatase 55 (46-116) U/L Total Protein 6.9 (6.4-8.2) g/dL Albumin 3.6 (3.4-5.0) g/dL Globulin 3.3 (2.6-4.0) g/dL Albumin/Globulin Ratio 1.1 (0.9-1.6) Lipase 214 (73-393) U/L Urine Color Urine Appearance Urine pH (5.0-8.0) Ur Specific [place] (1.001-1.035) Urine Protein (NEGATIVE) mg/dL Urine Glucose (UA) (NEGATIVE) mg/dL Urine Ketones (NEGATIVE) mg/dL Urine Occult Blood (NEGATIVE) Urine Nitrite (NEGATIVE) Urine Bilirubin (NEGATIVE) Urine Ictotest Urine Urobilinogen (<2.0) EU/dL Ur Leukocyte Esterase (NEGATIVE) Urine RBC (0-2/HPF) Urine WBC (0-5/HPF) Ur Epithelial Cells (NONE-FEW) Urine Bacteria (NEGATIVE) Urine Mucus (NONE-MOD) Urine HCG, Qual (NEGATIVE) SARS-CoV-2 RNA (LAVERN) (NEGATIVE) SARS CoV-2 RNA Rapid [place] POSITIVE H (NEGATIVE) 05/17/20 05/17/20 Range/Units 17:24 18:00 WBC (4.0-11.0) K/uL RBC (4.30-5.90) M/uL Hgb (12.0-16.0) g/dL Hct (36.0-46.0) % MCV (80.0-98.0) fL MCH (27.0-32.0) pg MCHC (31.0-37.0) g/dL RDW Std Deviation (28.0-62.0) fl RDW Coeff of Anthony (11.0-15.0) % Plt Count (150-400) K/uL MPV (7.40-12.00) fL Neut % (Auto) (48.0-80.0) % Lymph % (Auto) (16.0-40.0) % Iron % (Auto) (0.0-15.0) % Eos % (Auto) (0.0-7.0) % Baso % (Auto) (0.0-1.5) % Neut # (Auto) (1.4-5.7) K/uL Lymph # (Auto) (0.6-2.4) K/uL Iron # (Auto) (0.0-0.8) K/uL Eos # (Auto) (0.0-0.7) K/uL Baso # (Auto) (0.0-0.1) K/uL Nucleated RBC % /100WBC Nucleated RBCs # K/uL Lactate 0.9 (0.20-2.00) mmol/L Sodium (136-145) mmol/L Potassium (3.5-5.1) mmol/L Chloride (98-107) mmol/L Carbon Dioxide (21.0-32.0) mmol/L BUN (7.0-18.0) mg/dL Creatinine (0.6-1.0) mg/dL Est Cr Clr Drug Dosing mL/min Estimated GFR (MDRD) ml/min Glucose (74-106) mg/dL Calcium (8.5-10.1) mg/dL Magnesium (1.8-2.4) mg/dL Total Bilirubin (0.2-1.0) mg/dL AST (15-37) IU/L ALT (14-63) IU/L Alkaline Phosphatase (46-116) U/L Total Protein (6.4-8.2) g/dL Albumin (3.4-5.0) g/dL Globulin (2.6-4.0) g/dL Albumin/Globulin Ratio (0.9-1.6) Lipase (73-393) U/L Urine Color Urine Appearance Urine pH (5.0-8.0) Ur Specific [place] (1.001-1.035) Urine Protein (NEGATIVE) mg/dL Urine Glucose (UA) (NEGATIVE) mg/dL Urine Ketones (NEGATIVE) mg/dL Urine Occult Blood (NEGATIVE) Urine Nitrite (NEGATIVE) Urine Bilirubin (NEGATIVE) Urine Ictotest Urine Urobilinogen (<2.0) EU/dL Ur Leukocyte Esterase (NEGATIVE) Urine RBC (0-2/HPF) Urine WBC (0-5/HPF) Ur Epithelial Cells (NONE-FEW) Urine Bacteria (NEGATIVE) Urine Mucus (NONE-MOD) Urine HCG, Qual (NEGATIVE) SARS-CoV-2 RNA (LAVERN) POSITIVE H (NEGATIVE) SARS CoV-2 RNA Rapid LAVERN (NEGATIVE) Result Diagrams: 05/17/20 14:40 05/17/20 14:40 Sepsis Event Note - Evaluation Sepsis Screening Result: No Definite Risk - Focused Exam Vital Signs: Vital Signs Temp Pulse Resp BP Pulse Ox 05/17/20 18:12 37.1 C 82 17 108/41 L 98 05/17/20 16:10 70 20 107/59 L 97 05/17/20 12:34 35.7 C L 85 20 109/63 95 Problem List Initiated/Reviewed/Updated: Yes Orders Last 24hrs: Active Orders 24 hr Category Date Time Status Patient Status [ADT] Routine ADT 05/17/20 17:16 Active Antiembolic Devices [RC] PER UNIT ROUTINE Care 05/17/20 23:27 Ordered Cardiac Monitoring [RC] . DIRECTED Care 05/17/20 14:41 Active Oxygen Therapy [RC] PRN Care 05/17/20 23:27 Ordered Pulse Oximetry [RC] ASDIRECTED Care 05/17/20 14:41 Active Up ad Narcisa [RC] ASDIRECTED Care 05/17/20 23:27 Ordered VTE/DVT Education [RC] PER UNIT ROUTINE Care 05/17/20 23:27 Ordered Vital Signs [RC] Q4H Care 05/17/20 23:27 Ordered Regular Diet [DIET] Diet 05/17/20 Breakfast Ordered BASIC METABOLIC PANEL,BMP [CHEM] AM Lab 05/18/20 05:11 Ordered CBC WITH AUTO DIFF [HEME] AM Lab 05/18/20 05:11 Ordered CORONAVIRUS COVID-19 PCR PHL Stat Lab 05/17/20 16:19 Received CULTURE URINE [RM] Routine Lab 05/17/20 23:09 Ordered UA W/ZULEYKA RFLX IF INDICATED [URIN] Stat Lab 05/17/20 14:42 Ordered Ondansetron [Zofran] Med 05/17/20 23:27 Ordered 4 mg IVPUSH Q4H PRN Sodium Chloride 0.9% [Normal Saline] 1,000 ml Med 05/17/20 17:00 Active IV ASDIRECTED Sodium Chloride 0.9% [Saline Flush] Med 05/17/20 14:39 Active 10 ml FLUSH ASDIRECTED PRN Sodium Chloride 0.9% [Saline Flush] Med 05/17/20 14:39 Active 2.5 ml FLUSH ASDIRECTED PRN cefTRIAXone [Rocephin in Dextrose,Iso-Osm 1 GM/50 ML] Med 05/18/20 00:00 Active 50 ml IV Q24H Saline Lock Insert [OM.PC] Stat Oth 05/17/20 14:41 Ordered Sequential Compression Device [OM.PC] Per Unit Routine Oth 05/17/20 23:27 Ordered Resuscitation Status Routine Resus Stat 05/17/20 23:27 Ordered Medication Orders Sodium Chloride (Normal Saline) 1,000 mls @ 999 mls/hr IV ASDIRECTED LEIGH ANN Ceftriaxone Sodium/Dextrose (Rocephin In Dextrose,Iso-Osm 1 Gm/50 Ml) 50 mls @ 100 mls/hr IV Q24H LEIGH ANN Ondansetron HCl (Zofran) 4 mg IVPUSH Q4H PRN PRN Reason: Nausea Sodium Chloride (Saline Flush) 10 ml FLUSH ASDIRECTED PRN PRN Reason: Keep Vein Open Last Admin: 05/17/20 15:22 Dose: 10 ml Documented by: LAUREN Sodium Chloride (Saline Flush) 2.5 ml FLUSH ASDIRECTED PRN PRN Reason: Keep Vein Open Last Admin: 05/17/20 15:22 Dose: 2.5 ml Documented by: LAUREN Assessment/Plan Comment:: 49 yo female admitted for COVID-19 and UTI. COVID-19: treating supportively with antiemetics and IV fluids UTI: Rocephin, culture pending.
[2020-05-18] MEDS: Sodium Chloride 0.9% 1,000 ML IV SCH ×2 (01:36→09:45)
[2020-05-18] MEDS: Ondansetron 4 MG/2 ML SDV IVPUSH PRN ×4 (02:32→21:10)
[2020-05-18] MEDS: Acetaminophen 325 MG Tab PO PRN ×2 (04:08→21:04)
[2020-05-18 07:11] LABS: BLOOD UREA NITROGEN,BUN 10 mg/dL (7.0-18.0); CARBON DIOXIDE,CO2 28.9 mmol/L (21.0-32.0); CHLORIDE,CL 102 mmol/L (98-107); GLUCOSE RANDOM 102 mg/dL (74-106); POTASSIUM,K 3.1 mmol/L (3.5-5.1); SODIUM,NA 138 mmol/L (136-145)
--- NOTE | 2020-05-18 13:22 | PCM.PN ---
- General Info Date of Service: 05/18/20 - Review of Systems Systems Review Comment:: feeling better, but is still vomiting this morning and last night - Patient Data Vitals - Most Recent: Last Vital Signs Temp 36.7 C 05/18/20 09:38 Pulse 65 05/18/20 09:38 Resp 16 05/18/20 09:38 BP 101/47 L 05/18/20 09:38 Pulse Ox 93 L 05/18/20 09:38 Weight - Most Recent: 149.685 kg I&O - Last 24 Hours: Intake & Output 05/17/20 05/18/20 05/18/20 22:59 06:59 14:59 Intake Total 720 Output Total 350 Balance 370 Lab Results Last 24 Hours: Laboratory Results - last 24 hr 05/17/20 05/17/20 05/17/20 Range/Units 14:16 14:16 14:40 WBC (4.0-11.0) K/uL RBC (4.30-5.90) M/uL Hgb (12.0-16.0) g/dL Hct (36.0-46.0) % MCV (80.0-98.0) fL MCH (27.0-32.0) pg MCHC (31.0-37.0) g/dL RDW Std Deviation (28.0-62.0) fl RDW Coeff of Anthony (11.0-15.0) % Plt Count (150-400) K/uL MPV (7.40-12.00) fL Neut % (Auto) (48.0-80.0) % Lymph % (Auto) (16.0-40.0) % [place] % (Auto) (0.0-15.0) % Eos % (Auto) (0.0-7.0) % Baso % (Auto) (0.0-1.5) % Neut # (Auto) (1.4-5.7) K/uL Lymph # (Auto) (0.6-2.4) K/uL [place] # (Auto) (0.0-0.8) K/uL Eos # (Auto) (0.0-0.7) K/uL Baso # (Auto) (0.0-0.1) K/uL Nucleated RBC % /100WBC Nucleated RBCs # K/uL Lactate 2.2 H* (0.20-2.00) mmol/L Sodium (136-145) mmol/L Potassium (3.5-5.1) mmol/L Chloride (98-107) mmol/L Carbon Dioxide (21.0-32.0) mmol/L BUN (7.0-18.0) mg/dL Creatinine (0.6-1.0) mg/dL Est Cr Clr Drug Dosing mL/min Estimated GFR (MDRD) ml/min Glucose (74-106) mg/dL Calcium (8.5-10.1) mg/dL Magnesium (1.8-2.4) mg/dL Total Bilirubin (0.2-1.0) mg/dL AST (15-37) IU/L ALT (14-63) IU/L Alkaline Phosphatase (46-116) U/L Total Protein (6.4-8.2) g/dL Albumin (3.4-5.0) g/dL Globulin (2.6-4.0) g/dL Albumin/Globulin Ratio (0.9-1.6) Lipase (73-393) U/L Urine Color YELLOW Urine Appearance HAZY Urine pH 6.5 (5.0-8.0) Ur Specific [place] >= 1.030 (1.001-1.035) Urine Protein TRACE H (NEGATIVE) mg/dL Urine Glucose (UA) NEGATIVE (NEGATIVE) mg/dL Urine Ketones NEGATIVE (NEGATIVE) mg/dL Urine Occult Blood NEGATIVE (NEGATIVE) Urine Nitrite NEGATIVE (NEGATIVE) Urine Bilirubin SMALL H (NEGATIVE) Urine Ictotest NEGATIVE Urine Urobilinogen 2.0 H (<2.0) EU/dL Ur Leukocyte Esterase NEGATIVE (NEGATIVE) Urine RBC 0-2 (0-2/HPF) Urine WBC 0-4 (0-5/HPF) Ur Epithelial Cells FEW (NONE-FEW) Urine Bacteria FEW (NEGATIVE) Urine Mucus LIGHT (NONE-MOD) Urine HCG, Qual NEGATIVE (NEGATIVE) SARS-CoV-2 RNA (LAVERN) (NEGATIVE) SARS CoV-2 RNA Rapid LAVERN (NEGATIVE) 05/17/20 05/17/20 05/17/20 Range/Units 14:40 14:40 16:19 WBC 4.41 (4.0-11.0) K/uL RBC 4.89 (4.30-5.90) M/uL Hgb 14.8 (12.0-16.0) g/dL Hct 43.3 (36.0-46.0) % MCV 88.5 (80.0-98.0) fL MCH 30.3 (27.0-32.0) pg MCHC 34.2 (31.0-37.0) g/dL RDW Std Deviation 42.6 (28.0-62.0) fl RDW Coeff of Anthony 13 (11.0-15.0) % Plt Count 181 (150-400) K/uL MPV 9.30 (7.40-12.00) fL Neut % (Auto) 63.9 (48.0-80.0) % Lymph % (Auto) 23.4 (16.0-40.0) % [place] % (Auto) 12.5 (0.0-15.0) % Eos % (Auto) 0.0 (0.0-7.0) % Baso % (Auto) 0.2 (0.0-1.5) % Neut # (Auto) 2.8 (1.4-5.7) K/uL Lymph # (Auto) 1.0 (0.6-2.4) K/uL [place] # (Auto) 0.6 (0.0-0.8) K/uL Eos # (Auto) 0.0 (0.0-0.7) K/uL Baso # (Auto) 0.0 (0.0-0.1) K/uL Nucleated RBC % 0.0 /100WBC Nucleated RBCs # 0 K/uL Lactate (0.20-2.00) mmol/L Sodium 139 (136-145) mmol/L Potassium 3.9 (3.5-5.1) mmol/L Chloride 101 (98-107) mmol/L Carbon Dioxide 27.9 (21.0-32.0) mmol/L BUN 10 (7.0-18.0) mg/dL Creatinine 0.7 (0.6-1.0) mg/dL Est Cr Clr Drug Dosing 116.63 mL/min Estimated GFR (MDRD) > 60.0 ml/min Glucose 105 (74-106) mg/dL Calcium 8.2 L (8.5-10.1) mg/dL Magnesium 1.9 (1.8-2.4) mg/dL Total Bilirubin 0.4 (0.2-1.0) mg/dL AST 39 H (15-37) IU/L ALT 48 (14-63) IU/L Alkaline Phosphatase 55 (46-116) U/L Total Protein 6.9 (6.4-8.2) g/dL Albumin 3.6 (3.4-5.0) g/dL Globulin 3.3 (2.6-4.0) g/dL Albumin/Globulin Ratio 1.1 (0.9-1.6) Lipase 214 (73-393) U/L Urine Color Urine Appearance Urine pH (5.0-8.0) Ur Specific [place] (1.001-1.035) Urine Protein (NEGATIVE) mg/dL Urine Glucose (UA) (NEGATIVE) mg/dL Urine Ketones (NEGATIVE) mg/dL Urine Occult Blood (NEGATIVE) Urine Nitrite (NEGATIVE) Urine Bilirubin (NEGATIVE) Urine Ictotest Urine Urobilinogen (<2.0) EU/dL Ur Leukocyte Esterase (NEGATIVE) Urine RBC (0-2/HPF) Urine WBC (0-5/HPF) Ur Epithelial Cells (NONE-FEW) Urine Bacteria (NEGATIVE) Urine Mucus (NONE-MOD) Urine HCG, Qual (NEGATIVE) SARS-CoV-2 RNA (LAVREN) (NEGATIVE) SARS CoV-2 RNA Rapid [place] POSITIVE H (NEGATIVE) 05/17/20 05/17/20 05/18/20 Range/Units 17:24 18:00 06:15 WBC 4.16 (4.0-11.0) K/uL RBC 4.48 (4.30-5.90) M/uL Hgb 13.4 (12.0-16.0) g/dL Hct 40.1 (36.0-46.0) % MCV 89.5 (80.0-98.0) fL MCH 29.9 (27.0-32.0) pg MCHC 33.4 (31.0-37.0) g/dL RDW Std Deviation 43.4 (28.0-62.0) fl RDW Coeff of Anthony 13 (11.0-15.0) % Plt Count 176 (150-400) K/uL MPV 9.60 (7.40-12.00) fL Neut % (Auto) 63.0 (48.0-80.0) % Lymph % (Auto) 24.3 (16.0-40.0) % [place] % (Auto) 12.7 (0.0-15.0) % Eos % (Auto) 0.0 (0.0-7.0) % Baso % (Auto) 0.0 (0.0-1.5) % Neut # (Auto) 2.6 (1.4-5.7) K/uL Lymph # (Auto) 1.0 (0.6-2.4) K/uL [place] # (Auto) 0.5 (0.0-0.8) K/uL Eos # (Auto) 0.0 (0.0-0.7) K/uL Baso # (Auto) 0.0 (0.0-0.1) K/uL Nucleated RBC % 0.0 /100WBC Nucleated RBCs # 0 K/uL Lactate 0.9 (0.20-2.00) mmol/L Sodium (136-145) mmol/L Potassium (3.5-5.1) mmol/L Chloride (98-107) mmol/L Carbon Dioxide (21.0-32.0) mmol/L BUN (7.0-18.0) mg/dL Creatinine (0.6-1.0) mg/dL Est Cr Clr Drug Dosing mL/min Estimated GFR (MDRD) ml/min Glucose (74-106) mg/dL Calcium (8.5-10.1) mg/dL Magnesium (1.8-2.4) mg/dL Total Bilirubin (0.2-1.0) mg/dL AST (15-37) IU/L ALT (14-63) IU/L Alkaline Phosphatase (46-116) U/L Total Protein (6.4-8.2) g/dL Albumin (3.4-5.0) g/dL Globulin (2.6-4.0) g/dL Albumin/Globulin Ratio (0.9-1.6) Lipase (73-393) U/L Urine Color Urine Appearance Urine pH (5.0-8.0) Ur Specific [place] (1.001-1.035) Urine Protein (NEGATIVE) mg/dL Urine Glucose (UA) (NEGATIVE) mg/dL Urine Ketones (NEGATIVE) mg/dL Urine Occult Blood (NEGATIVE) Urine Nitrite (NEGATIVE) Urine Bilirubin (NEGATIVE) Urine Ictotest Urine Urobilinogen (<2.0) EU/dL Ur Leukocyte Esterase (NEGATIVE) Urine RBC (0-2/HPF) Urine WBC (0-5/HPF) Ur Epithelial Cells (NONE-FEW) Urine Bacteria (NEGATIVE) Urine Mucus (NONE-MOD) Urine HCG, Qual (NEGATIVE) SARS-CoV-2 RNA (LAVERN) POSITIVE H (NEGATIVE) SARS CoV-2 RNA Rapid LAVERN (NEGATIVE) 05/18/20 05/18/20 Range/Units 06:15 06:15 WBC (4.0-11.0) K/uL RBC (4.30-5.90) M/uL Hgb (12.0-16.0) g/dL Hct (36.0-46.0) % MCV (80.0-98.0) fL MCH (27.0-32.0) pg MCHC (31.0-37.0) g/dL RDW Std Deviation (28.0-62.0) fl RDW Coeff of Anthony (11.0-15.0) % Plt Count (150-400) K/uL MPV (7.40-12.00) fL Neut % (Auto) (48.0-80.0) % Lymph % (Auto) (16.0-40.0) % [place] % (Auto) (0.0-15.0) % Eos % (Auto) (0.0-7.0) % Baso % (Auto) (0.0-1.5) % Neut # (Auto) (1.4-5.7) K/uL Lymph # (Auto) (0.6-2.4) K/uL [place] # (Auto) (0.0-0.8) K/uL Eos # (Auto) (0.0-0.7) K/uL Baso # (Auto) (0.0-0.1) K/uL Nucleated RBC % /100WBC Nucleated RBCs # K/uL Lactate (0.20-2.00) mmol/L Sodium 138 (136-145) mmol/L Potassium 3.1 L (3.5-5.1) mmol/L Chloride 102 (98-107) mmol/L Carbon Dioxide 28.9 (21.0-32.0) mmol/L BUN 10 (7.0-18.0) mg/dL Creatinine 0.7 (0.6-1.0) mg/dL Est Cr Clr Drug Dosing 116.63 mL/min Estimated GFR (MDRD) > 60.0 ml/min Glucose 102 (74-106) mg/dL Calcium 7.8 L (8.5-10.1) mg/dL Magnesium 1.8 (1.8-2.4) mg/dL Total Bilirubin 0.3 (0.2-1.0) mg/dL AST 30 (15-37) IU/L ALT 41 (14-63) IU/L Alkaline Phosphatase 48 (46-116) U/L Total Protein 6.5 (6.4-8.2) g/dL Albumin 3.0 L (3.4-5.0) g/dL Globulin 3.5 (2.6-4.0) g/dL Albumin/Globulin Ratio 0.9 (0.9-1.6) Lipase (73-393) U/L Urine Color Urine Appearance Urine pH (5.0-8.0) Ur Specific [place] (1.001-1.035) Urine Protein (NEGATIVE) mg/dL Urine Glucose (UA) (NEGATIVE) mg/dL Urine Ketones (NEGATIVE) mg/dL Urine Occult Blood (NEGATIVE) Urine Nitrite (NEGATIVE) Urine Bilirubin (NEGATIVE) Urine Ictotest Urine Urobilinogen (<2.0) EU/dL Ur Leukocyte Esterase (NEGATIVE) Urine RBC (0-2/HPF) Urine WBC (0-5/HPF) Ur Epithelial Cells (NONE-FEW) Urine Bacteria (NEGATIVE) Urine Mucus (NONE-MOD) Urine HCG, Qual (NEGATIVE) SARS-CoV-2 RNA (LAVERN) (NEGATIVE) SARS CoV-2 RNA Rapid LAVERN (NEGATIVE) Med Orders - Current: Current Medications Acetaminophen (Tylenol) 650 mg PO Q6H PRN PRN Reason: Pain Last Admin: 05/18/20 04:08 Dose: 650 mg Documented by: Enoxaparin Sodium (Lovenox) 40 mg SUBCUT Q24H [facility] Ceftriaxone Sodium/Dextrose (Rocephin In Dextrose,Iso-Osm 1 Gm/50 Ml) 50 mls @ 100 mls/hr IV Q24H [facility]IGH ANN Last Admin: 05/18/20 00:00 Dose: 100 mls/hr Documented by: Sodium Chloride (Normal Saline) 1,000 mls @ 125 mls/hr IV ASDIRECTED LEIGH ANN Last Admin: 05/18/20 09:45 Dose: 125 mls/hr Documented by: Ondansetron HCl (Zofran) 4 mg IVPUSH Q4H PRN PRN Reason: Nausea Last Admin: 05/18/20 09:45 Dose: 4 mg Documented by: Sodium Chloride (Saline Flush) 10 ml FLUSH ASDIRECTED PRN PRN Reason: Keep Vein Open Last Admin: 05/17/20 15:22 Dose: 10 ml Documented by: Sodium Chloride (Saline Flush) 2.5 ml FLUSH ASDIRECTED PRN PRN Reason: Keep Vein Open Last Admin: 05/17/20 15:22 Dose: 2.5 ml Documented by: Discontinued Medications Sodium Chloride (Normal Saline) 1,000 mls @ 999 mls/hr IV .Bolus ONE Stop: 05/17/20 15:39 Last Admin: 05/17/20 15:17 Dose: 999 mls/hr Documented by: Sodium Chloride (Normal Saline) 1,000 mls @ 999 mls/hr IV ASDIRECTED LEIGH ANN Sodium Chloride (Normal Saline) 1,000 mls @ 999 mls/hr IV .Bolus ONE Stop: 05/17/20 17:56 Last Admin: 05/17/20 17:12 Dose: 999 mls/hr Documented by: Iopamidol (Isovue Multipack-370 (76%)) 100 ml IVPUSH ONETIME STA Stop: 05/17/20 19:28 Last Admin: 05/17/20 19:27 Dose: 100 ml Documented by: Metoclopramide HCl (Reglan) 10 mg IVPUSH ONETIME ONE Stop: 05/17/20 16:00 Last Admin: 05/17/20 16:08 Dose: 10 mg Documented by: Morphine Sulfate (Morphine) 4 mg IVPUSH ONETIME ONE Stop: 05/17/20 14:44 Last Admin: 05/17/20 15:16 Dose: 4 mg Documented by: Ondansetron HCl (Zofran) 4 mg IVPUSH ONETIME ONE Stop: 05/17/20 14:44 Last Admin: 05/17/20 15:17 Dose: 4 mg Documented by: Sodium Chloride (Normal Saline) 1,000 ml IV ONETIME ONE Stop: 05/17/20 16:53 Last Admin: 05/17/20 16:55 Dose: Not Given Documented by: - Exam General: Alert, Oriented Neck: Supple Lungs: Clear to Auscultation, Normal Respiratory Effort Cardiovascular: Regular Rate, Regular Rhythm GI/Abdominal Exam: Soft, Non-Tender, No Distention Extremities: Non-Tender, No Pedal Edema Sepsis Event Note - Evaluation Sepsis Screening Result: No Definite Risk - Focused Exam Vital Signs: Vital Signs Temp Pulse Resp BP Pulse Ox 05/18/20 09:38 36.7 C 65 16 101/47 L 93 L 05/18/20 04:27 36.6 C 66 17 111/60 97 - Problem List Review Problem List Initiated/Reviewed/Updated: Yes - My Orders Last 24 Hours: My Active Orders 05/17/20 14:16 CULTURE URINE [RM] Routine 05/17/20 23:27 Antiembolic Devices [RC] PER UNIT ROUTINE Oxygen Therapy [RC] PRN Up ad Narcisa [RC] ASDIRECTED VTE/DVT Education [RC] PER UNIT ROUTINE Vital Signs [RC] Q4H Ondansetron [Zofran] 4 mg IVPUSH Q4H PRN Sequential Compression Device [OM.PC] Per Unit Routine Resuscitation Status Routine 05/17/20 23:45 Sodium Chloride 0.9% [Normal Saline] 1,000 ml IV ASDIRECTED 05/18/20 00:00 cefTRIAXone [Rocephin in Dextrose,Iso-Osm 1 GM/50 ML] 50 ml IV Q24H 05/18/20 02:52 Acetaminophen [TylenoL] 650 mg PO Q6H PRN 05/18/20 13:30 Enoxaparin [Lovenox] 40 mg SUBCUT Q24H 05/19/20 05:11 CBC WITH AUTO DIFF [HEME] AM COMPREHENSIVE METABOLIC PN,CMP [CHEM] AM - Plan Plan:: 49 yo female admitted for COVID-19 and UTI. COVID-19: treating supportively with antiemetics UTI: Rocephin, culture pending. Anticipated discharge home tomorrow if she continues to improve.
[2020-05-18] MEDS ORDERED: Potassium Chloride 20 MEQ Tab.ER PO ONE (13:24)
[2020-05-18] MEDS: Enoxaparin 40 MG/0.4 ML Syringe SUBCUT SCH (14:06)
[2020-05-18] MEDS ORDERED: Potassium Chloride 20 MEQ Tab.ER ONE (14:14)
[2020-05-19 07:38] LABS: BLOOD UREA NITROGEN,BUN 6 mg/dL (7.0-18.0); CARBON DIOXIDE,CO2 28.7 mmol/L (21.0-32.0); CHLORIDE,CL 102 mmol/L (98-107); GLUCOSE RANDOM 102 mg/dL (74-106); POTASSIUM,K 3.3 mmol/L (3.5-5.1); SODIUM,NA 139 mmol/L (136-145)
[2020-05-19] MEDS: Ondansetron 4 MG/2 ML SDV IVPUSH PRN (09:18)
[2020-05-19] MEDS ORDERED: Potassium Chloride 10% 20 MEQ/15 ML Soln 30 ML UD Cup PO ONE (11:20)
--- NOTE | 2020-05-19 11:37 | PCM.PN ---
- General Info Date of Service: 05/19/20 Admission Dx/Problem (Free Text): Admission Diagnosis/Problem Admission Diagnosis/Problem Abdominal pain Subjective Update: seen at bedside, feels better but continues to have cough, unable to tolerate PO meds - Review of Systems General: Reports: Weakness, Fatigue. Denies: Fever, Malaise Pulmonary: Denies: Shortness of Breath Cardiovascular: Denies: Chest Pain, Palpitations Gastrointestinal: Reports: Decreased Appetite, Nausea, Vomiting. Denies: Abdominal Pain, Constipation, Diarrhea Genitourinary: Denies: Frequency, Burning, Pain Musculoskeletal: Denies: Neck Pain, Shoulder Pain, Arm Pain, Hand Pain Skin: Denies: Cyanosis, Jaundice, Mottled, Pallor - Patient Data Vitals - Most Recent: Last Vital Signs Temp 37.1 C 05/19/20 09:00 Pulse 79 05/19/20 09:00 Resp 16 05/19/20 09:00 BP 108/48 L 05/19/20 09:00 Pulse Ox 95 05/19/20 09:00 Weight - Most Recent: 149.685 kg I&O - Last 24 Hours: Intake & Output 05/18/20 05/19/20 05/19/20 22:59 06:59 14:59 Intake Total 600 1050 Output Total 400 525 Balance 200 525 Lab Results Last 24 Hours: Laboratory Results - last 24 hr 05/19/20 05/19/20 Range/Units 05:55 05:55 WBC 4.78 (4.0-11.0) K/uL RBC 4.43 (4.30-5.90) M/uL Hgb 13.2 (12.0-16.0) g/dL Hct 39.6 (36.0-46.0) % MCV 89.4 (80.0-98.0) fL MCH 29.8 (27.0-32.0) pg MCHC 33.3 (31.0-37.0) g/dL RDW Std Deviation 42.7 (28.0-62.0) fl RDW Coeff of Anthony 13 (11.0-15.0) % Plt Count 196 (150-400) K/uL MPV 10.00 (7.40-12.00) fL Neut % (Auto) 63.4 (48.0-80.0) % Lymph % (Auto) 25.7 (16.0-40.0) % [place] % (Auto) 10.7 (0.0-15.0) % Eos % (Auto) 0.0 (0.0-7.0) % Baso % (Auto) 0.2 (0.0-1.5) % Neut # (Auto) 3.0 (1.4-5.7) K/uL Lymph # (Auto) 1.2 (0.6-2.4) K/uL [place] # (Auto) 0.5 (0.0-0.8) K/uL Eos # (Auto) 0.0 (0.0-0.7) K/uL Baso # (Auto) 0.0 (0.0-0.1) K/uL Nucleated RBC % 0.0 /100WBC Nucleated RBCs # 0 K/uL Sodium 139 (136-145) mmol/L Potassium 3.3 L (3.5-5.1) mmol/L Chloride 102 (98-107) mmol/L Carbon Dioxide 28.7 (21.0-32.0) mmol/L BUN 6 L (7.0-18.0) mg/dL Creatinine 0.7 (0.6-1.0) mg/dL Est Cr Clr Drug Dosing 116.63 mL/min Estimated GFR (MDRD) > 60.0 ml/min Glucose 102 (74-106) mg/dL Calcium 8.2 L (8.5-10.1) mg/dL Total Bilirubin 0.3 (0.2-1.0) mg/dL AST 27 (15-37) IU/L ALT 36 (14-63) IU/L Alkaline Phosphatase 43 L (46-116) U/L Total Protein 6.7 (6.4-8.2) g/dL Albumin 3.1 L (3.4-5.0) g/dL Globulin 3.6 (2.6-4.0) g/dL Albumin/Globulin Ratio 0.9 (0.9-1.6) Med Orders - Current: Current Medications Acetaminophen (Tylenol) 650 mg PO Q6H PRN PRN Reason: Pain Last Admin: 05/18/20 21:04 Dose: 650 mg Documented by: Enoxaparin Sodium (Lovenox) 40 mg SUBCUT Q24H [facility] Last Admin: 05/18/20 14:06 Dose: 40 mg Documented by: Ceftriaxone Sodium/Dextrose (Rocephin In Dextrose,Iso-Osm 1 Gm/50 Ml) 50 mls @ 100 mls/hr IV Q24H [facility] Last Admin: 05/18/20 23:21 Dose: 100 mls/hr Documented by: Ondansetron HCl (Zofran) 4 mg IVPUSH Q4H PRN PRN Reason: Nausea Last Admin: 05/19/20 09:18 Dose: 4 mg Documented by: Sodium Chloride (Saline Flush) 10 ml FLUSH ASDIRECTED PRN PRN Reason: Keep Vein Open Last Admin: 05/17/20 15:22 Dose: 10 ml Documented by: Sodium Chloride (Saline Flush) 2.5 ml FLUSH ASDIRECTED PRN PRN Reason: Keep Vein Open Last Admin: 05/17/20 15:22 Dose: 2.5 ml Documented by: Discontinued Medications Sodium Chloride (Normal Saline) 1,000 mls @ 999 mls/hr IV .Bolus ONE Stop: 05/17/20 15:39 Last Admin: 05/17/20 15:17 Dose: 999 mls/hr Documented by: Sodium Chloride (Normal Saline) 1,000 mls @ 999 mls/hr IV ASDIRECTED [facility] Sodium Chloride (Normal Saline) 1,000 mls @ 999 mls/hr IV .Bolus ONE Stop: 05/17/20 17:56 Last Admin: 05/17/20 17:12 Dose: 999 mls/hr Documented by: Sodium Chloride (Normal Saline) 1,000 mls @ 50 mls/hr IV ASDIRECTED [facility] Stop: 05/20/20 19:44 Last Admin: 05/18/20 09:45 Dose: 125 mls/hr Documented by: Iopamidol (Isovue Multipack-370 (76%)) 100 ml IVPUSH ONETIME STA Stop: 05/17/20 19:28 Last Admin: 05/17/20 19:27 Dose: 100 ml Documented by: Metoclopramide HCl (Reglan) 10 mg IVPUSH ONETIME ONE Stop: 05/17/20 16:00 Last Admin: 05/17/20 16:08 Dose: 10 mg Documented by: Morphine Sulfate (Morphine) 4 mg IVPUSH ONETIME ONE Stop: 05/17/20 14:44 Last Admin: 05/17/20 15:16 Dose: 4 mg Documented by: Ondansetron HCl (Zofran) 4 mg IVPUSH ONETIME ONE Stop: 05/17/20 14:44 Last Admin: 05/17/20 15:17 Dose: 4 mg Documented by: Potassium Chloride (Klor-Con M20) 40 meq PO ONETIME ONE Stop: 05/18/20 13:25 Last Admin: 05/18/20 14:07 Dose: 40 meq Documented by: Potassium Chloride (Klor-Con M20) Confirm Administered Dose 20 meq .ROUTE .STK- MED ONE Stop: 05/18/20 14:15 Last Admin: 05/18/20 14:20 Dose: Not Given Documented by: Potassium Chloride (Potassium Chloride) 40 meq PO ONETIME ONE Stop: 05/19/20 11:21 Sodium Chloride (Normal Saline) 1,000 ml IV ONETIME ONE Stop: 05/17/20 16:53 Last Admin: 05/17/20 16:55 Dose: Not Given Documented by: - Exam Quality Assessment: Supplemental Oxygen General: Alert, Oriented Lungs: Clear to Auscultation, Normal Respiratory Effort. No: Decreased Breath Sounds Cardiovascular: Regular Rate, Regular Rhythm GI/Abdominal Exam: Normal Bowel Sounds, Soft, Non-Tender Sepsis Event Note - Evaluation Sepsis Screening Result: No Definite Risk - Focused Exam Vital Signs: Vital Signs Temp Pulse Resp BP Pulse Ox 05/19/20 09:00 37.1 C 79 16 108/48 L 95 05/19/20 03:59 36.3 C 74 16 121/53 L 94 L - Problem List & Annotations (1) Nausea & vomiting SNOMED Code(s): 57720476 Code(s): R11.2 - NAUSEA WITH VOMITING, UNSPECIFIED Status: Acute Current Visit: Yes (2) COVID-19 SNOMED Code(s): 965358813 Code(s): U07.1 - COVID-19 Status: Acute Current Visit: Yes (3) UTI, Urinary tract infectious disease SNOMED Code(s): 79042744 Code(s): N39.0 - URINARY TRACT INFECTION, SITE NOT SPECIFIED Status: Acute Current Visit: No (4) Hypokalemia SNOMED Code(s): 71965885 Code(s): E87.6 - HYPOKALEMIA Status: Acute Current Visit: Yes - Problem List Review Problem List Initiated/Reviewed/Updated: Yes - Plan Plan:: 49 yo female admitted for COVID-19 and UTI. COVID-19: treating supportively with antiemetics, IV fluids UTI: culture noted, stop IV Rocephin Anticipated discharge home tomorrow as patient unable to tolerate PO .
[2020-05-19] MEDS ORDERED: guaiFENesin/Dextromethorphan 100-10 MG/5 ML Soln 10 ML Cup PO PRN (13:26)
[2020-05-19] MEDS ORDERED: Potassium Chloride Riders 40 MEQ in Premix Bag 1 BAG IV ONE (13:27)
[2020-05-19] MEDS ORDERED: Sodium Chloride 0.9% 500 ML IV ONE (13:45)
[2020-05-19] MEDS: Enoxaparin 40 MG/0.4 ML Syringe SUBCUT SCH (14:13)
[2020-05-19] MEDS ORDERED: Lactated Ringers 1,000 ML IV SCH (14:30)
[2020-05-20] MEDS: Ondansetron 4 MG/2 ML SDV IVPUSH PRN ×2 (03:20→09:48)
[2020-05-20] MEDS: guaiFENesin/Dextromethorphan 100-10 MG/5 ML Soln 10 ML Cup PO SCH ×3 (09:49→14:30)
[2020-05-20] MEDS ORDERED: Promethazine 25 MG/ML SDV IM PRN (12:32)
[2020-05-20] MEDS ORDERED: Metoclopramide 10 MG/2 ML SDV IVPUSH PRN (12:32)
--- NOTE | 2020-05-20 12:36 | PCM.PN ---
- General Info Date of Service: 05/20/20 Admission Dx/Problem (Free Text): Admission Diagnosis/Problem Admission Diagnosis/Problem Abdominal pain Subjective Update: seen at bedside, feels weaker todqay, continues to have cough, and nausea, unable to tolerate PO meds Functional Status: Reports: Pain Controlled - Review of Systems General: Reports: Weakness, Fatigue, Malaise Pulmonary: Denies: Shortness of Breath, Pleuritic Chest Pain Cardiovascular: Denies: Chest Pain, Palpitations Gastrointestinal: Reports: Decreased Appetite, Nausea, Vomiting. Denies: Abdominal Pain, Constipation, Diarrhea, Difficulty Swallowing Genitourinary: Denies: Dysuria, Frequency Musculoskeletal: Denies: Neck Pain, Shoulder Pain, Arm Pain Skin: Denies: Cyanosis, Jaundice, Mottled - Patient Data Vitals - Most Recent: Last Vital Signs Temp 37.4 C 05/20/20 07:40 Pulse 84 05/20/20 07:40 Resp 17 05/20/20 07:40 BP 117/48 L 05/20/20 07:40 Pulse Ox 92 L 05/20/20 07:40 Weight - Most Recent: 149.685 kg I&O - Last 24 Hours: Intake & Output 05/19/20 05/20/20 05/20/20 22:59 06:59 14:59 Intake Total 150 Output Total 1250 Balance -1100 [place] Results Last 24 Hours: Microbiology 05/17/20 14:16 Urine Culture - Final Urine, Clean Catch MIXED GILDA 10,000-100,000 CFU/ML Med Orders - Current: Current Medications Acetaminophen (Tylenol) 650 mg PO Q6H PRN PRN Reason: Pain Last Admin: 05/18/20 21:04 Dose: 650 mg Documented by: Enoxaparin Sodium (Lovenox) 40 mg SUBCUT Q24H [facility] Last Admin: 05/19/20 14:13 Dose: 40 mg Documented by: Guaifenesin/Dextromethorphan (Robitussin Dm) 10 ml PO Q4H [facility] Last Admin: 05/20/20 09:56 Dose: Not Given Documented by: Metoclopramide HCl (Reglan) 5 mg IVPUSH Q6H PRN PRN Reason: Nausea/Vomiting Promethazine HCl (Phenergan) 12.5 mg IM Q4H PRN PRN Reason: Nausea/Vomiting Sodium Chloride (Saline Flush) 10 ml FLUSH ASDIRECTED PRN PRN Reason: Keep Vein Open Last Admin: 05/17/20 15:22 Dose: 10 ml Documented by: Sodium Chloride (Saline Flush) 2.5 ml FLUSH ASDIRECTED PRN PRN Reason: Keep Vein Open Last Admin: 05/17/20 15:22 Dose: 2.5 ml Documented by: Discontinued Medications Guaifenesin/Dextromethorphan (Robitussin Dm) 10 ml PO Q4H PRN PRN Reason: Cough Last Admin: 05/20/20 03:15 Dose: 10 ml Documented by: Sodium Chloride (Normal Saline) 1,000 mls @ 999 mls/hr IV .Bolus ONE Stop: 05/17/20 15:39 Last Admin: 05/17/20 15:17 Dose: 999 mls/hr Documented by: Sodium Chloride (Normal Saline) 1,000 mls @ 999 mls/hr IV ASDIRECTED [facility] Sodium Chloride (Normal Saline) 1,000 mls @ 999 mls/hr IV .Bolus ONE Stop: 05/17/20 17:56 Last Admin: 05/17/20 17:12 Dose: 999 mls/hr Documented by: Ceftriaxone Sodium/Dextrose (Rocephin In Dextrose,Iso-Osm 1 Gm/50 Ml) 50 mls @ 100 mls/hr IV Q24H [facility] Last Admin: 05/18/20 23:21 Dose: 100 mls/hr Documented by: Sodium Chloride (Normal Saline) 1,000 mls @ 50 mls/hr IV ASDIRECTED [facility] Stop: 05/20/20 19:44 Last Admin: 05/18/20 09:45 Dose: 125 mls/hr Documented by: Potassium Chloride 40 meq/ (Premix) 100 mls @ 25 mls/hr IV ONETIME ONE Stop: 05/19/20 17:26 Last Admin: 05/19/20 14:13 Dose: 25 mls/hr Documented by: Sodium Chloride (Normal Saline) 500 mls @ 125 mls/hr IV ONETIME ONE Stop: 05/19/20 17:44 Last Admin: 05/19/20 14:13 Dose: 125 mls/hr Documented by: Lactated Ringer's (Ringers, Lactated) 1,000 mls @ 100 mls/hr IV ASDIRECTED [facility] Last Admin: 05/19/20 20:28 Dose: 100 mls/hr Documented by: Iopamidol (Isovue Multipack-370 (76%)) 100 ml IVPUSH ONETIME STA Stop: 05/17/20 19:28 Last Admin: 05/17/20 19:27 Dose: 100 ml Documented by: Metoclopramide HCl (Reglan) 10 mg IVPUSH ONETIME ONE Stop: 05/17/20 16:00 Last Admin: 05/17/20 16:08 Dose: 10 mg Documented by: Morphine Sulfate (Morphine) 4 mg IVPUSH ONETIME ONE Stop: 05/17/20 14:44 Last Admin: 05/17/20 15:16 Dose: 4 mg Documented by: Ondansetron HCl (Zofran) 4 mg IVPUSH ONETIME ONE Stop: 05/17/20 14:44 Last Admin: 05/17/20 15:17 Dose: 4 mg Documented by: Ondansetron HCl (Zofran) 4 mg IVPUSH Q4H PRN PRN Reason: Nausea Last Admin: 05/20/20 09:48 Dose: 4 mg Documented by: Potassium Chloride (Klor-Con M20) 40 meq PO ONETIME ONE Stop: 05/18/20 13:25 Last Admin: 05/18/20 14:07 Dose: 40 meq Documented by: Potassium Chloride (Klor-Con M20) Confirm Administered Dose 20 meq .ROUTE .STK- MED ONE Stop: 05/18/20 14:15 Last Admin: 05/18/20 14:20 Dose: Not Given Documented by: Potassium Chloride (Potassium Chloride) 40 meq PO ONETIME ONE Stop: 05/19/20 11:21 Last Admin: 05/19/20 12:00 Dose: Not Given Documented by: Sodium Chloride (Normal Saline) 1,000 ml IV ONETIME ONE Stop: 05/17/20 16:53 Last Admin: 05/17/20 16:55 Dose: Not Given Documented by: Sepsis Event Note - Evaluation Sepsis Screening Result: No Definite Risk - Focused Exam Vital Signs: Vital Signs Temp Pulse Resp BP Pulse Ox 05/20/20 07:40 37.4 C 84 17 117/48 L 92 L 05/20/20 03:06 36.4 C 82 16 127/49 L 94 L - Problem List & Annotations (1) Nausea & vomiting SNOMED Code(s): 54505822 Code(s): R11.2 - NAUSEA WITH VOMITING, UNSPECIFIED Status: Acute Current Visit: Yes (2) COVID-19 SNOMED Code(s): 545988710 Code(s): U07.1 - COVID-19 Status: Acute Current Visit: Yes (3) UTI, Urinary tract infectious disease SNOMED Code(s): 42726049 Code(s): N39.0 - URINARY TRACT INFECTION, SITE NOT SPECIFIED Status: Acute Current Visit: No (4) Hypokalemia SNOMED Code(s): 63455634 Code(s): E87.6 - HYPOKALEMIA Status: Acute Current Visit: Yes - Problem List Review Problem List Initiated/Reviewed/Updated: Yes - My Orders Last 24 Hours: My Active Orders 05/20/20 09:45 Dextromethorphan/guaiFENesin [Robitussin DM] 10 ml PO Q4H 05/20/20 12:32 Promethazine [Phenergan] 12.5 mg IM Q4H PRN 05/20/20 12:32 Metoclopramide [Reglan] 5 mg IVPUSH Q6H PRN - Plan Plan:: 49 yo female admitted for COVID-19 and UTI. COVID-19: not hypoxic, treating supportively with antiemetics, IV fluids UTI: culture noted, stop IV Rocephin Keep NPO for ow except ice chips, Reglan, Phenergan PRN for N/V
[2020-05-20] MEDS: Enoxaparin 40 MG/0.4 ML Syringe SUBCUT SCH (14:27)
[2020-05-20] MEDS ORDERED: guaiFENesin/Dextromethorphan 100-10 MG/5 ML Soln 10 ML Cup PO PRN (14:55)
[2020-05-21 06:46] LABS: BLOOD UREA NITROGEN,BUN 7 mg/dL (7.0-18.0); CARBON DIOXIDE,CO2 27.8 mmol/L (21.0-32.0); CHLORIDE,CL 102 mmol/L (98-107); GLUCOSE RANDOM 105 mg/dL (74-106); POTASSIUM,K 3.2 mmol/L (3.5-5.1); SODIUM,NA 140 mmol/L (136-145)
[2020-05-21] MEDS ORDERED: Potassium Chloride Riders 40 MEQ in Premix Bag 1 BAG IV ONE (10:04)
[2020-05-21] MEDS ORDERED: Sodium Chloride 0.9% 500 ML IV ONE (10:30)
--- NOTE | 2020-05-21 12:55 | PCM.PN ---
- General Info Date of Service: 05/21/20 Admission Dx/Problem (Free Text): Admission Diagnosis/Problem Admission Diagnosis/Problem Abdominal pain Subjective Update: seen at bedside, feels little better today, willing to try some soft diet, Functional Status: Reports: Ambulating, Urinating - Review of Systems General: Reports: Fever, Weakness, Fatigue, Malaise. Denies: Chills, Night Sweats Pulmonary: Denies: Shortness of Breath, Pleuritic Chest Pain Cardiovascular: Denies: Chest Pain, Palpitations, Dyspnea on Exertion Gastrointestinal: Reports: Decreased Appetite, Nausea. Denies: Abdominal Pain, Constipation, Diarrhea, Difficulty Swallowing, Melena, Vomiting Genitourinary: Reports: Frequency, Burning, Pain, Urgency Musculoskeletal: Reports: Neck Pain, Shoulder Pain, Arm Pain, Hand Pain Skin: Reports: Cyanosis, Jaundice, Mottled, Pallor - Patient Data Vitals - Most Recent: Last Vital Signs Temp 37.5 C 05/21/20 12:00 Pulse 74 05/21/20 12:00 Resp 16 05/21/20 12:00 BP 103/78 05/21/20 12:00 Pulse Ox 92 L 05/21/20 12:00 Weight - Most Recent: 149.685 kg I&O - Last 24 Hours: Intake & Output 05/20/20 05/21/20 05/21/20 22:59 06:59 14:59 Intake Total 200 10 Output Total 480 900 Balance -280 -890 Lab Results Last 24 Hours: Laboratory Results - last 24 hr 05/21/20 05/21/20 Range/Units 06:10 06:10 WBC 5.18 (4.0-11.0) K/uL RBC 4.52 (4.30-5.90) M/uL Hgb 13.6 (12.0-16.0) g/dL Hct 40.5 (36.0-46.0) % MCV 89.6 (80.0-98.0) fL MCH 30.1 (27.0-32.0) pg MCHC 33.6 (31.0-37.0) g/dL RDW Std Deviation 43.3 (28.0-62.0) fl RDW Coeff of Anthony 13 (11.0-15.0) % Plt Count 225 (150-400) K/uL MPV 9.40 (7.40-12.00) fL Neut % (Auto) 60.2 (48.0-80.0) % Lymph % (Auto) 25.7 (16.0-40.0) % [place] % (Auto) 13.3 (0.0-15.0) % Eos % (Auto) 0.4 (0.0-7.0) % Baso % (Auto) 0.4 (0.0-1.5) % Neut # (Auto) 3.1 (1.4-5.7) K/uL Lymph # (Auto) 1.3 (0.6-2.4) K/uL [place] # (Auto) 0.7 (0.0-0.8) K/uL Eos # (Auto) 0.0 (0.0-0.7) K/uL Baso # (Auto) 0.0 (0.0-0.1) K/uL Nucleated RBC % 0.0 /100WBC Nucleated RBCs # 0 K/uL Sodium 140 (136-145) mmol/L Potassium 3.2 L (3.5-5.1) mmol/L Chloride 102 (98-107) mmol/L Carbon Dioxide 27.8 (21.0-32.0) mmol/L BUN 7 (7.0-18.0) mg/dL Creatinine 0.6 (0.6-1.0) mg/dL Est Cr Clr Drug Dosing 136.06 mL/min Estimated GFR (MDRD) > 60.0 ml/min Glucose 105 (74-106) mg/dL Calcium 8.2 L (8.5-10.1) mg/dL Phosphorus 3.3 (2.6-4.7) mg/dL Magnesium 1.8 (1.8-2.4) mg/dL Med Orders - Current: Current Medications Acetaminophen (Tylenol) 650 mg PO Q6H PRN PRN Reason: Pain Last Admin: 05/18/20 21:04 Dose: 650 mg Documented by: Enoxaparin Sodium (Lovenox) 40 mg SUBCUT Q24H [facility] Last Admin: 05/20/20 14:27 Dose: 40 mg Documented by: Guaifenesin/Dextromethorphan (Robitussin Dm) 10 ml PO Q4H PRN PRN Reason: Cough Last Admin: 05/21/20 01:38 Dose: 10 ml Documented by: Potassium Chloride 40 meq/ (Premix) 100 mls @ 25 mls/hr IV ONETIME ONE Stop: 05/21/20 14:03 Last Admin: 05/21/20 10:56 Dose: 25 mls/hr Documented by: Sodium Chloride (Normal Saline) 500 mls @ 125 mls/hr IV ONETIME ONE Stop: 05/21/20 14:29 Last Admin: 05/21/20 11:00 Dose: 125 mls/hr Documented by: Metoclopramide HCl (Reglan) 5 mg IVPUSH Q6H PRN PRN Reason: Nausea/Vomiting Promethazine HCl (Phenergan) 12.5 mg IM Q4H PRN PRN Reason: Nausea/Vomiting Last Admin: 05/20/20 14:31 Dose: 12.5 mg Documented by: Sodium Chloride (Saline Flush) 10 ml FLUSH ASDIRECTED PRN PRN Reason: Keep Vein Open Last Admin: 05/17/20 15:22 Dose: 10 ml Documented by: Sodium Chloride (Saline Flush) 2.5 ml FLUSH ASDIRECTED PRN PRN Reason: Keep Vein Open Last Admin: 05/17/20 15:22 Dose: 2.5 ml Documented by: Discontinued Medications Guaifenesin/Dextromethorphan (Robitussin Dm) 10 ml PO Q4H PRN PRN Reason: Cough Last Admin: 05/20/20 03:15 Dose: 10 ml Documented by: Guaifenesin/Dextromethorphan (Robitussin Dm) 10 ml PO Q4H [facility] Last Admin: 05/20/20 14:30 Dose: Not Given Documented by: Sodium Chloride (Normal Saline) 1,000 mls @ 999 mls/hr IV .Bolus ONE Stop: 05/17/20 15:39 Last Admin: 05/17/20 15:17 Dose: 999 mls/hr Documented by: Sodium Chloride (Normal Saline) 1,000 mls @ 999 mls/hr IV ASDIRECTED [facility] Sodium Chloride (Normal Saline) 1,000 mls @ 999 mls/hr IV .Bolus ONE Stop: 05/17/20 17:56 Last Admin: 05/17/20 17:12 Dose: 999 mls/hr Documented by: Ceftriaxone Sodium/Dextrose (Rocephin In Dextrose,Iso-Osm 1 Gm/50 Ml) 50 mls @ 100 mls/hr IV Q24H [facility] Last Admin: 05/18/20 23:21 Dose: 100 mls/hr Documented by: Sodium Chloride (Normal Saline) 1,000 mls @ 50 mls/hr IV ASDIRECTED [facility] Stop: 05/20/20 19:44 Last Admin: 05/18/20 09:45 Dose: 125 mls/hr Documented by: Potassium Chloride 40 meq/ (Premix) 100 mls @ 25 mls/hr IV ONETIME ONE Stop: 05/19/20 17:26 Last Admin: 05/19/20 14:13 Dose: 25 mls/hr Documented by: Sodium Chloride (Normal Saline) 500 mls @ 125 mls/hr IV ONETIME ONE Stop: 05/19/20 17:44 Last Admin: 05/19/20 14:13 Dose: 125 mls/hr Documented by: Lactated Ringer's (Ringers, Lactated) 1,000 mls @ 100 mls/hr IV ASDIRECTED [facility] Last Admin: 05/19/20 20:28 Dose: 100 mls/hr Documented by: Iopamidol (Isovue Multipack-370 (76%)) 100 ml IVPUSH ONETIME STA Stop: 05/17/20 19:28 Last Admin: 05/17/20 19:27 Dose: 100 ml Documented by: Metoclopramide HCl (Reglan) 10 mg IVPUSH ONETIME ONE Stop: 05/17/20 16:00 Last Admin: 05/17/20 16:08 Dose: 10 mg Documented by: Morphine Sulfate (Morphine) 4 mg IVPUSH ONETIME ONE Stop: 05/17/20 14:44 Last Admin: 05/17/20 15:16 Dose: 4 mg Documented by: Ondansetron HCl (Zofran) 4 mg IVPUSH ONETIME ONE Stop: 05/17/20 14:44 Last Admin: 05/17/20 15:17 Dose: 4 mg Documented by: Ondansetron HCl (Zofran) 4 mg IVPUSH Q4H PRN PRN Reason: Nausea Last Admin: 05/20/20 09:48 Dose: 4 mg Documented by: Potassium Chloride (Klor-Con M20) 40 meq PO ONETIME ONE Stop: 05/18/20 13:25 Last Admin: 05/18/20 14:07 Dose: 40 meq Documented by: Potassium Chloride (Klor-Con M20) Confirm Administered Dose 20 meq .ROUTE .STK- MED ONE Stop: 05/18/20 14:15 Last Admin: 05/18/20 14:20 Dose: Not Given Documented by: Potassium Chloride (Potassium Chloride) 40 meq PO ONETIME ONE Stop: 05/19/20 11:21 Last Admin: 05/19/20 12:00 Dose: Not Given Documented by: Sodium Chloride (Normal Saline) 1,000 ml IV ONETIME ONE Stop: 05/17/20 16:53 Last Admin: 05/17/20 16:55 Dose: Not Given Documented by: - Exam Quality Assessment: No: Supplemental Oxygen General: Alert, Oriented Neck: Supple, Trachea Midline Lungs: Clear to Auscultation, Normal Respiratory Effort Cardiovascular: Regular Rate, Regular Rhythm GI/Abdominal Exam: Normal Bowel Sounds, Soft, Non-Tender, No Organomegaly Sepsis Event Note - Evaluation Sepsis Screening Result: No Definite Risk - Focused Exam Vital Signs: Vital Signs Temp Pulse Resp BP Pulse Ox 05/21/20 12:00 37.5 C 74 16 103/78 92 L 05/21/20 09:00 36.6 C 73 16 100/58 L 92 L 05/21/20 05:00 37.5 C 72 15 107/63 92 L 05/21/20 01:21 37.1 C 78 15 115/57 L 90 L - Problem List & Annotations (1) Nausea & vomiting SNOMED Code(s): 93363272 Code(s): R11.2 - NAUSEA WITH VOMITING, UNSPECIFIED Status: Acute Current Visit: Yes (2) COVID-19 SNOMED Code(s): 224782250 Code(s): U07.1 - COVID-19 Status: Acute Current Visit: Yes (3) UTI, Urinary tract infectious disease SNOMED Code(s): 90138164 Code(s): N39.0 - URINARY TRACT INFECTION, SITE NOT SPECIFIED Status: Acute Current Visit: No (4) Hypokalemia SNOMED Code(s): 17891288 Code(s): E87.6 - HYPOKALEMIA Status: Acute Current Visit: Yes - Problem List Review Problem List Initiated/Reviewed/Updated: Yes - My Orders Last 24 Hours: My Active Orders 05/20/20 12:32 Metoclopramide [Reglan] 5 mg IVPUSH Q6H PRN Promethazine [Phenergan] 12.5 mg IM Q4H PRN 05/20/20 14:55 Dextromethorphan/guaiFENesin [Robitussin DM] 10 ml PO Q4H PRN 05/21/20 10:04 Potassium Chloride Riders [KCL 40 MEQ in Water 100 ML] 40 meq Premix Bag 1 bag IV ONETIME 05/21/20 10:30 Sodium Chloride 0.9% [Normal Saline] 500 ml IV ONETIME 05/21/20 Lunch Soft Diet [DIET] - Plan Plan:: 49 yo female admitted for COVID-19 and UTI. COVID-19: not hypoxic, treating supportively with antiemetics, IV fluids UTI: culture noted, stop IV Rocephin advnace diet to soft diet Reglan, Phenergan PRN for N/V If tolerates diet, will dc today
--- NOTE | 2020-05-21 13:01 | PCM.DCSUM1 ---
Discharge Summary - Hospital Course Free Text/Narrative:: 49 yo female who presents with several day history of abdominal pain, nausea and vomiting. Patient was seen a day prior in ED and given Bactrim for treatment UTI. Patient presents again to the ED with same GI symptoms. CT scan of abdomen reported ground glass opacities in the lungs bilaterally. She tested positive for COVID, patient was admitted for further management. she was started on IV fluids, IV antibiotics for UTI. Her Culture came ou as mixed charmaine, so antibiotics were stopped. Patient continued to have N/Vomiting extreme fatigue. Over next few days she required IV Zofran, IV PPI for supportive treatment of her symptoms. She was eventually started on clear diet and later advanced to soft,. She tolerated her diet, and felt better. Patient was medially stable for dc and recommended to fu with her pcp upon dc and isolate at home - Discharge Data Discharge Date: 05/21/20 Discharge Disposition: Home, Self-Care 01 Condition: Good - Referral to Home Health Primary Care Physician: Bill Duenas MD - Discharge Diagnosis/Problem(s) (1) Nausea & vomiting SNOMED Code(s): 85239046 ICD Code: R11.2 - NAUSEA WITH VOMITING, UNSPECIFIED Status: Acute (2) COVID-19 SNOMED Code(s): 650720586 ICD Code: U07.1 - COVID-19 Status: Acute (3) UTI, Urinary tract infectious disease SNOMED Code(s): 66434139 ICD Code: N39.0 - URINARY TRACT INFECTION, SITE NOT SPECIFIED Status: Acute (4) Hypokalemia SNOMED Code(s): 95316624 ICD Code: E87.6 - HYPOKALEMIA Status: Acute - Discharge Plan Prescriptions/Med Rec: Dextromethorphan/guaiFENesin [Robitussin DM] 10 ml PO Q4H PRN #1 bottle PRN Reason: Cough Home Medications: Home Meds methocarbamoL [Methocarbamol] 1,500 mg PO TID PRN 12/06/18 [History] traMADol HCl [Tramadol HCl] 50 mg PO Q6HR PRN 12/06/18 [History] Ondansetron [Zofran ODT] 4 mg PO Q6H PRN #10 tab.dis 05/16/20 [Rx] Dextromethorphan/guaiFENesin [Robitussin DM] 10 ml PO Q4H PRN #1 bottle 05/21/20 [Rx] Patient Handouts: COVID-19 Frequently Asked Questions, COVID-19: How to Protect Yourself and Others - CDC, Infection Prevention in the Home, Coronavirus Information 11/01/19, Dexamethasone tablets, Prevent the Spread of COVID-19 if You Are Sick - [facility] Referrals: Bill Duenas MD [Primary Care Provider] - 06/07/20 10:00 am - Discharge Summary/Plan Comment DC Time >30 min.: No - Patient Data Vitals - Most Recent: Last Vital Signs Temp 37.5 C 05/21/20 12:00 Pulse 74 05/21/20 12:00 Resp 16 05/21/20 12:00 BP 103/78 05/21/20 12:00 Pulse Ox 92 L 05/21/20 12:00 Weight - Most Recent: 149.685 kg I&O - Last 24 hours: Intake & Output 05/20/20 05/21/20 05/21/20 22:59 06:59 14:59 Intake Total 200 10 Output Total 480 900 Balance -280 -890 Lab Results - Last 24 hrs: Laboratory Results - last 24 hr 05/21/20 05/21/20 Range/Units 06:10 06:10 WBC 5.18 (4.0-11.0) K/uL RBC 4.52 (4.30-5.90) M/uL Hgb 13.6 (12.0-16.0) g/dL Hct 40.5 (36.0-46.0) % MCV 89.6 (80.0-98.0) fL MCH 30.1 (27.0-32.0) pg MCHC 33.6 (31.0-37.0) g/dL RDW Std Deviation 43.3 (28.0-62.0) fl RDW Coeff of Anthony 13 (11.0-15.0) % Plt Count 225 (150-400) K/uL MPV 9.40 (7.40-12.00) fL Neut % (Auto) 60.2 (48.0-80.0) % Lymph % (Auto) 25.7 (16.0-40.0) % [place] % (Auto) 13.3 (0.0-15.0) % Eos % (Auto) 0.4 (0.0-7.0) % Baso % (Auto) 0.4 (0.0-1.5) % Neut # (Auto) 3.1 (1.4-5.7) K/uL Lymph # (Auto) 1.3 (0.6-2.4) K/uL [place] # (Auto) 0.7 (0.0-0.8) K/uL Eos # (Auto) 0.0 (0.0-0.7) K/uL Baso # (Auto) 0.0 (0.0-0.1) K/uL Nucleated RBC % 0.0 /100WBC Nucleated RBCs # 0 K/uL Sodium 140 (136-145) mmol/L Potassium 3.2 L (3.5-5.1) mmol/L Chloride 102 (98-107) mmol/L Carbon Dioxide 27.8 (21.0-32.0) mmol/L BUN 7 (7.0-18.0) mg/dL Creatinine 0.6 (0.6-1.0) mg/dL Est Cr Clr Drug Dosing 136.06 mL/min Estimated GFR (MDRD) > 60.0 ml/min Glucose 105 (74-106) mg/dL Calcium 8.2 L (8.5-10.1) mg/dL Phosphorus 3.3 (2.6-4.7) mg/dL Magnesium 1.8 (1.8-2.4) mg/dL Med Orders - Current: Current Medications Acetaminophen (Tylenol) 650 mg PO Q6H PRN PRN Reason: Pain Last Admin: 05/18/20 21:04 Dose: 650 mg Documented by: Enoxaparin Sodium (Lovenox) 40 mg SUBCUT Q24H LEIGH ANN Last Admin: 05/20/20 14:27 Dose: 40 mg Documented by: Guaifenesin/Dextromethorphan (Robitussin Dm) 10 ml PO Q4H PRN PRN Reason: Cough Last Admin: 05/21/20 01:38 Dose: 10 ml Documented by: Potassium Chloride 40 meq/ (Premix) 100 mls @ 25 mls/hr IV ONETIME ONE Stop: 05/21/20 14:03 Last Admin: 05/21/20 10:56 Dose: 25 mls/hr Documented by: Sodium Chloride (Normal Saline) 500 mls @ 125 mls/hr IV ONETIME ONE Stop: 05/21/20 14:29 Last Admin: 05/21/20 11:00 Dose: 125 mls/hr Documented by: Metoclopramide HCl (Reglan) 5 mg IVPUSH Q6H PRN PRN Reason: Nausea/Vomiting Promethazine HCl (Phenergan) 12.5 mg IM Q4H PRN PRN Reason: Nausea/Vomiting Last Admin: 05/20/20 14:31 Dose: 12.5 mg Documented by: Sodium Chloride (Saline Flush) 10 ml FLUSH ASDIRECTED PRN PRN Reason: Keep Vein Open Last Admin: 05/17/20 15:22 Dose: 10 ml Documented by: Sodium Chloride (Saline Flush) 2.5 ml FLUSH ASDIRECTED PRN PRN Reason: Keep Vein Open Last Admin: 05/17/20 15:22 Dose: 2.5 ml Documented by: Discontinued Medications Guaifenesin/Dextromethorphan (Robitussin Dm) 10 ml PO Q4H PRN PRN Reason: Cough Last Admin: 05/20/20 03:15 Dose: 10 ml Documented by: Guaifenesin/Dextromethorphan (Robitussin Dm) 10 ml PO Q4H LEIGH ANN Last Admin: 05/20/20 14:30 Dose: Not Given Documented by: Sodium Chloride (Normal Saline) 1,000 mls @ 999 mls/hr IV .Bolus ONE Stop: 05/17/20 15:39 Last Admin: 05/17/20 15:17 Dose: 999 mls/hr Documented by: Sodium Chloride (Normal Saline) 1,000 mls @ 999 mls/hr IV ASDIRECTED LEIGH ANN Sodium Chloride (Normal Saline) 1,000 mls @ 999 mls/hr IV .Bolus ONE Stop: 05/17/20 17:56 Last Admin: 05/17/20 17:12 Dose: 999 mls/hr Documented by: Ceftriaxone Sodium/Dextrose (Rocephin In Dextrose,Iso-Osm 1 Gm/50 Ml) 50 mls @ 100 mls/hr IV Q24H LEIGH ANN Last Admin: 05/18/20 23:21 Dose: 100 mls/hr Documented by: Sodium Chloride (Normal Saline) 1,000 mls @ 50 mls/hr IV ASDIRECTED [facility] Stop: 05/20/20 19:44 Last Admin: 05/18/20 09:45 Dose: 125 mls/hr Documented by: Potassium Chloride 40 meq/ (Premix) 100 mls @ 25 mls/hr IV ONETIME ONE Stop: 05/19/20 17:26 Last Admin: 05/19/20 14:13 Dose: 25 mls/hr Documented by: Sodium Chloride (Normal Saline) 500 mls @ 125 mls/hr IV ONETIME ONE Stop: 05/19/20 17:44 Last Admin: 05/19/20 14:13 Dose: 125 mls/hr Documented by: Lactated Ringer's (Ringers, Lactated) 1,000 mls @ 100 mls/hr IV ASDIRECTED [facility] Last Admin: 05/19/20 20:28 Dose: 100 mls/hr Documented by: Iopamidol (Isovue Multipack-370 (76%)) 100 ml IVPUSH ONETIME STA Stop: 05/17/20 19:28 Last Admin: 05/17/20 19:27 Dose: 100 ml Documented by: Metoclopramide HCl (Reglan) 10 mg IVPUSH ONETIME ONE Stop: 05/17/20 16:00 Last Admin: 05/17/20 16:08 Dose: 10 mg Documented by: Morphine Sulfate (Morphine) 4 mg IVPUSH ONETIME ONE Stop: 05/17/20 14:44 Last Admin: 05/17/20 15:16 Dose: 4 mg Documented by: Ondansetron HCl (Zofran) 4 mg IVPUSH ONETIME ONE Stop: 05/17/20 14:44 Last Admin: 05/17/20 15:17 Dose: 4 mg Documented by: Ondansetron HCl (Zofran) 4 mg IVPUSH Q4H PRN PRN Reason: Nausea Last Admin: 05/20/20 09:48 Dose: 4 mg Documented by: Potassium Chloride (Klor-Con M20) 40 meq PO ONETIME ONE Stop: 05/18/20 13:25 Last Admin: 05/18/20 14:07 Dose: 40 meq Documented by: Potassium Chloride (Klor-Con M20) Confirm Administered Dose 20 meq .ROUTE .STK- MED ONE Stop: 05/18/20 14:15 Last Admin: 05/18/20 14:20 Dose: Not Given Documented by: Potassium Chloride (Potassium Chloride) 40 meq PO ONETIME ONE Stop: 05/19/20 11:21 Last Admin: 05/19/20 12:00 Dose: Not Given Documented by: Sodium Chloride (Normal Saline) 1,000 ml IV ONETIME ONE Stop: 05/17/20 16:53 Last Admin: 05/17/20 16:55 Dose: Not Given Documented by:
[2020-05-21] MEDS: Enoxaparin 40 MG/0.4 ML Syringe SUBCUT SCH (13:38)
== END 2020-05-21 17:00 | disposition home or self-care (01) ==
LOC: MW.ED 12:19 → MW.MS 17:16
PROVIDERS: ADMIT Internal Medicine; ATTEND Internal Medicine
DX: U07.1 COVID-19 (principal); N39.0 Urinary tract infection, site not specified; E87.6 Hypokalemia; Z20.828 Contact with and (suspected) exposure to other viral communicable diseases; Z88.6 Allergy status to analgesic agent; Z88.5 Allergy status to narcotic agent
CPT/HCPCS: 36415; 74177; 80048; 80053; 81001; 81025; 83605; 83690; 83735; 84100; 85025; 87086; 87635; 96361; 96365; 96372; 96375; 96376; 99285; A9270; G0378; J0696; J1650; J2270; J2405; J2550; J2765; J3480; J7030; J7040; J7120; Q9967; 96374; 99221; 99231; 99238; U0002

== ENCOUNTER 2020-07-30 10:03 | Emergency (ER) | payer OTHER ==
--- NOTE | 2020-07-30 10:25 | EDM.PDOC ---
ED HPI GENERAL MEDICAL PROBLEM - General Chief Complaint: Lower Extremity Injury/Pain Stated Complaint: LEFT KNEE RIGHT WRIST INJURY Time Seen by Provider: 07/30/20 10:06 Source of Information: Reports: Patient History Limitations: Reports: No Limitations - History of Present Illness INITIAL COMMENTS - FREE TEXT/NARRATIVE: HISTORY AND PHYSICAL: History of present illness: Patient is a 50-year-old female who presents to the emergency room with complaints of left knee pain and right wrist pain post fall. 2 weeks ago she was walking her daughter's dog and had tripped, stating her left leg "gave out and went underneath me". As she fell she put her weight on her right upper extremity. Since that time she has been ambulatory although has pain to the left lateral knee and increased pain with weightbearing. She has been using a cock-up wrist splint that she had at home but still feels discomfort with use of the wrist. She is routinely on pain medication at home although states this is not alleviating her discomfort. She denies hitting her head or having any loss of consciousness at the time of the incident. She denies any other extremity involvement. Offers no systemic complaints. Review of systems: As per history of present illness and below otherwise all systems reviewed and negative. Past medical history: As per history of present illness and as reviewed below otherwise noncontributory. Surgical history: As per history of present illness and as reviewed below otherwise noncontributory. Social history: See social history for further information Family history: As per history of present illness and as reviewed below otherwise noncontributory. Physical exam: General: Well developed and well nourished. Alert and orientated x 3. Nontoxic in appearance and in no acute distress. Vital signs are stable and have been reviewed by me. Nursing notes were reviewed. HEENT: Atraumatic, normocephalic, pupils equal and reactive bilaterally, negativ e for conjunctival pallor or scleral icterus, mucous membranes moist, TMs normal bilaterally, throat clear, neck supple, nontender, trachea midline. No drooling or trismus noted. No meningeal signs. No hot potato voice noted. Lungs: Clear to auscultation, breath sounds equal bilaterally, chest nontender. Normal work of breathing, no accessory muscles used. Heart: S1S2, regular rate and rhythm without overt murmur Abdomen: Soft, nondistended, nontender. Negative for masses or hepatosplenomegaly. Negative for costovertebral tenderness. C-spine/Back: No pinpoint vertebral tenderness upon palpation. No crepitus, step-offs or obvious deformities. Patient is ambulatory into the emergency room without difficulty or deficit. Able to rock back on heels and walk on toes. Denies any urinary or fecal incontinence. Denies any numbness, tingling or saddle paresthesia. No concerns of serious infection, fracture or cord compression, or cauda equina syndrome. Deep tendon reflexes brisk bilaterally. Skin: Intact, warm, dry. No lesions or rashes noted. Hematologic: No petechiae or purpra. Mucosa appropriate color and normal nail bed color and refill. Extremities: Pain with palpation of the left lateral knee. Symmetrical to the right knee. No knee instability, negative drawer test, strong pedal and pretibial pulse. Mild soft tissue swelling noted to the dorsal aspect of the right wrist. Good flexion and extension with strong grasp of the right hand/wrist. She does have some discomfort with palpation. Negative snuffbox tenderness. Cap refill less than 3 seconds. Moves all other extremities per self without difficulty or deficits, negative for cords or calf pain. Neurovascular unremarkable. Neuro: Awake, alert, oriented. Cranial nerves II through XII unremarkable. Cerebellum unremarkable. Motor and sensory unremarkable throughout. Exam nonfocal. Psychiatric: Mood and affect are appropriate. Normal thought process. Answering questions appropriately. Notes: X-ray of the left knee shows no acute osseous abnormality. Patellofemoral predominant tricompartmental osteoarthrosis. There is no fracture of the right wrist. She already has a splint that fits appropriately for the wrist. I have talked with the patient about today's findings, in addition to providing specific details for plan of care. I would like her to follow-up with her primary care provider and/or the orthopedic provider if pain continues. Reassessment at the time of disposition demonstrates that the patient is in no acute distress. The patient is stable for discharge, counseling was provided and we discussed in great detail signs and symptoms that would prompt them to return to the Emergency Department. Medication, follow up and supportive care measures were reviewed and discussed. Voices understanding and is agreeable to plan of care. Denies any further questions or concerns at this time. Diagnostics: Left knee x-ray, right wrist x-ray Therapeutics: Percocet Prescription: Diclofenac Impression: Fall Left knee injury Right wrist injury Plan: 1. Rest, ice, elevate the affected extremity. Please wear the splint as directed. 2. Tylenol and/or Ibuprofen as needed for pain management. 3. Follow up with the Orthopedic provider as we discussed. Return to the ED as needed and as discussed. Definitive disposition and diagnosis as appropriate pending reevaluation and review of above. right wrist Pain Score (Numeric/FACES): 9 - Related Data Allergies Allergy/AdvReac Type Severity Reaction Status Date / Time acetaminophen Allergy Vomiting Verified 07/30/20 10:20 [From Tylenol-Codeine #3] aspirin Allergy Vomiting Verified 07/30/20 10:20 codeine Allergy Vomiting Verified 07/30/20 10:20 [From Tylenol-Codeine #3] Home Meds: Home Meds methocarbamoL [Methocarbamol] 1,500 mg PO TID PRN 12/06/18 [History] traMADol HCl [Tramadol HCl] 50 mg PO Q6HR PRN 12/06/18 [History] Ondansetron [Zofran ODT] 4 mg PO Q6H PRN #10 tab.dis 05/16/20 [Rx] Dextromethorphan/guaiFENesin [Robitussin DM] 10 ml PO Q4H PRN #1 bottle 05/21/20 [Rx] Past Medical History HEENT History: Reports: Impaired Vision Cardiovascular History: Reports: None Respiratory History: Reports: None Gastrointestinal History: Reports: None Genitourinary History: Reports: None 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: Musculoskeletal History: Reports: None Other Musculoskeletal History: Chronic Neck Pain Neurological History: Reports: None Psychiatric History: Reports: None Endocrine/Metabolic History: Reports: None Hematologic History: Reports: None Immunologic History: Reports: None Oncologic (Cancer) History: Reports: None - Infectious Disease History Infectious Disease History: Reports: Chicken Pox - Past Surgical History Head Surgeries/Procedures: Reports: None GI Surgical History: Reports: Cholecystectomy, Colonoscopy Female Surgical History: Reports: Section Other Female Surgeries/Procedures: cyst removal. Other Musculoskeletal Surgeries/Procedures:: knee surgery Social & Family History - Family History Family Medical History: No Pertinent Family History - Caffeine Use Caffeine Use: Reports: None Review of Systems - Review of Systems Review Of Systems: Comprehensive ROS is negative, except as noted in HPI. ED EXAM, GENERAL - Physical Exam Exam: See Below (See dictation) Course - Vital Signs Last Recorded V/S: Last Vital Signs Temp 96.5 F L 07/30/20 10:16 Pulse 87 07/30/20 10:16 Resp 18 07/30/20 10:16 BP 146/74 H 07/30/20 10:16 Pulse Ox 96 07/30/20 10:16 - Orders/Labs/Meds Meds: Medications Discontinued Medications Generic Name Dose Route Start Last Admin Trade Name Freq PRN Reason Stop Dose Admin Oxycodone/Acetaminophen 1 tab 07/30/20 10:26 Percocet 325-10 Mg PO 07/30/20 10:27 ONETIME ONE Departure - Departure Time of Disposition: 10:58 Disposition: Home, Self-Care 01 Clinical Impression: Fall Qualifiers: Encounter type: initial encounter Qualified Code(s): W19.XXXA - Unspecified fall, initial encounter Right wrist injury Qualifiers: Encounter type: initial encounter Qualified Code(s): S69.91XA - Unspecified injury of right wrist, hand and finger(s), initial encounter Left knee injury Qualifiers: Encounter type: initial encounter Qualified Code(s): S89.92XA - Unspecified injury of left lower leg, initial encounter - Discharge Information Instructions: Knee Sprain, Adult, [id number], Wrist Splint, Adult, [id number] Referrals: Bill Duenas MD [Primary Care Provider] - Forms: ED Department Discharge Additional Instructions: The following information is given to patients seen in the emergency department who are being discharged to home. This information is to outline your options for follow-up care. We provide all patients seen in our emergency department with a follow-up referral. The need for follow-up, as well as the timing and circumstances, are variable depending upon the specifics of your emergency department visit. If you don't have a primary care physician on staff, we will provide you with a referral. We always advise you to contact your personal physician following an emergency department visit to inform them of the circumstance of the visit and for follow-up with them and/or the need for any referrals to a consulting specialist. The emergency department will also refer you to a specialist when appropriate. This referral assures that you have the opportunity for follow-up care with a specialist. All of these measure are taken in an effort to provide you with optimal care, which includes your follow-up. Under all circumstances we always encourage you to contact your private physician who remains a resource for coordinating your care. When calling for follow-up care, please make the office aware that this follow-up is from your recent emergency room visit. If for any reason you are refused follow-up, please contact the [facility] Emergency Department at and asked to speak to the emergency department charge nurse. [facility] [address] [place] [id number] [address] Thank you for choosing the [facility] emergency department in [place] for your medical needs today. It was a pleasure caring for you. Today you were seen in the emergency department for fall. 1. Rest, ice, elevate the affected extremity. Please wear the splint as directed. 2. Tylenol and/or Ibuprofen as needed for pain management. 3. Follow up with the Orthopedic provider as we discussed. Return to the ED as needed and as discussed. Sepsis Event Note (ED) - Evaluation Sepsis Screening Result: No Definite Risk - Focused Exam Vital Signs: Vital Signs Temp Pulse Resp BP Pulse Ox 07/30/20 10:16 96.5 F L 87 18 146/74 H 96
[2020-07-30] MEDS ORDERED: Acetaminophen/oxyCODONE 325-10 MG Tab PO ONE (10:26)
--- NOTE | 2020-07-30 10:54 | CR ---
INDICATION: Pain after fall. TECHNIQUE: Three views right wrist. IMPRESSION: No fracture. No malalignment. No degenerative or inflammatory change. Dictated by Napoleon Wilson MD @ Jul 30 2020 10:52AM Signed by Dr. Napoleon Wilson @ Jul 30 2020 10:52AM
--- NOTE | 2020-07-30 10:54 | CR ---
TECHNIQUE: Left knee radiographs, 3 views. INDICATION: Fall. COMPARISON: None available. FINDINGS: Diffusely decreased osseous mineralization. No dislocation or displaced fracture. Marked lateral patellar subluxation. Moderate tricompartmental osteophytosis. Mild left moderate medial compartment joint space narrowing. Severe patellofemoral joint space narrowing with [id number] contact laterally. Possible small joint effusion. IMPRESSION: 1. No acute osseous abnormality. 2. Patellofemoral predominant tricompartmental osteoarthrosis. Dictated by Jluis Olmos MD @ 07/30/2020 10:52:11 AM Dictated by: Jluis Olmos MD @ 07/30/2020 10:52:15 (Electronically Signed)
== END 2020-07-30 11:10 | disposition home or self-care (01) ==
LOC: MW.ED 10:03
DX: S69.91XA Unspecified injury of right wrist, hand and finger(s), initial encounter (principal); S89.92XA Unspecified injury of left lower leg, initial encounter; Z88.5 Allergy status to narcotic agent; Z88.8 Allergy status to other drugs, medicaments and biological substances; W01.0XXA Fall on same level from slipping, tripping and stumbling without subsequent striking against object, initial encounter; Y93.01 Activity, walking, marching and hiking
CPT/HCPCS: 73110; 73562; 99283; A9270; 99284

== ENCOUNTER 2020-12-11 12:40 | Emergency (ER) | payer OTHER ==
[2020-12-11] MEDS ORDERED: Sodium Chloride 0.9% 1,000 ML IV ONE (13:06)
[2020-12-11] MEDS ORDERED: Ondansetron 4 MG/2 ML SDV IVPUSH ONE (13:06)
--- NOTE | 2020-12-11 13:14 | EDM.PDOC ---
ED HPI GENERAL MEDICAL PROBLEM - General Chief Complaint: Gastrointestinal Problem Stated Complaint: WEAK VOMITTING Time Seen by Provider: 12/11/20 12:55 Source of Information: Reports: Patient History Limitations: Reports: No Limitations - History of Present Illness INITIAL COMMENTS - FREE TEXT/NARRATIVE: Patient is a 50-year-old female who presents today for nausea vomiting. Patient dates the symptoms been going on for the past few weeks. Patient saw her PMD last week and had labs drawn but not aware of the results. Patient states that she is not able keep anything down not even water. Patient states whenever she eats or drinks something she vomited back up. Patient reports some diffuse marianne pain as well not made better or worse with any events. Patient denies any fever chills recent travels. Head Pain Score (Numeric/FACES): 10 - Related Data Allergies Allergy/AdvReac Type Severity Reaction Status Date / Time acetaminophen Allergy Vomiting Verified 12/11/20 12:58 [From Tylenol-Codeine #3] aspirin Allergy Vomiting Verified 12/11/20 12:58 codeine Allergy Vomiting Verified 12/11/20 12:58 [From Tylenol-Codeine #3] Home Meds: Home Meds methocarbamoL [Methocarbamol] 1,500 mg PO TID PRN 12/06/18 [History] traMADol HCl [Tramadol HCl] 50 mg PO Q6HR PRN 12/06/18 [History] Ondansetron [Zofran ODT] 4 mg PO Q6H PRN #10 tab.dis 05/16/20 [Rx] Dextromethorphan/guaiFENesin [Robitussin DM] 10 ml PO Q4H PRN #1 bottle 05/21/20 [Rx] Diclofenac Sodium [Voltaren] 75 mg PO BIDMEALS PRN #30 tab.cr 07/30/20 [Rx] Past Medical History HEENT History: Reports: Impaired Vision Cardiovascular History: Reports: None Respiratory History: Reports: None Gastrointestinal History: Reports: None Other Gastrointestinal History: Pt states she has a "fatty liver." Genitourinary History: Reports: None 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: Musculoskeletal History: Reports: None Other Musculoskeletal History: Chronic Neck Pain Neurological History: Reports: None Psychiatric History: Reports: None Endocrine/Metabolic History: Reports: None Hematologic History: Reports: None Immunologic History: Reports: None Oncologic (Cancer) History: Reports: None - Infectious Disease History Infectious Disease History: Reports: Chicken Pox - Past Surgical History Head Surgeries/Procedures: Reports: None GI Surgical History: Reports: Cholecystectomy, Colonoscopy Female Surgical History: Reports: Section Other Female Surgeries/Procedures: cyst removal. Other Musculoskeletal Surgeries/Procedures:: knee surgery Social & Family History - Family History Family Medical History: No Pertinent Family History - Tobacco Use Tobacco Use Status *Q: Never Tobacco User - Caffeine Use Caffeine Use: Reports: None - Recreational Drug Use Recreational Drug Use: No ED ROS GENERAL - Review of Systems Review Of Systems: See Below Constitutional: Reports: No Symptoms HEENT: Reports: No Symptoms Respiratory: Reports: No Symptoms Cardiovascular: Reports: No Symptoms Endocrine: Reports: No Symptoms GI/Abdominal: Reports: Abdominal Pain, Nausea, Vomiting : Reports: No Symptoms Musculoskeletal: Reports: No Symptoms Skin: Reports: No Symptoms Neurological: Reports: No Symptoms Psychiatric: Reports: No Symptoms Hematologic/Lymphatic: Reports: No Symptoms Immunologic: Reports: No Symptoms ED EXAM, GI/ABD - Physical Exam Exam: See Below Exam Limited By: No Limitations General Appearance: Alert, WD/WN, No Apparent Distress Head: Atraumatic, Normocephalic Respiratory/Chest: No Respiratory Distress, Lungs Clear, Normal Breath Sounds Cardiovascular: Normal Peripheral Pulses, Regular Rate, Rhythm GI/Abdominal Exam: Normal Bowel Sounds, Soft, Non-Tender, No Organomegaly Extremities: Normal Inspection, Normal Range of Motion Neurological: Alert, Oriented, CN II-XII Intact, Normal Cognition, Normal Gait Course - Vital Signs Last Recorded V/S: Last Vital Signs Temp 98.0 F 12/11/20 12:59 Pulse 78 12/11/20 14:00 Resp 17 12/11/20 14:00 BP 120/84 12/11/20 14:00 Pulse Ox 95 12/11/20 14:00 - Orders/Labs/Meds Labs: Laboratory Tests 12/11/20 12/11/20 12/11/20 Range/Units 13:07 13:10 13:10 WBC 7.12 (4.0-11.0) K/uL RBC 5.32 (4.30-5.90) M/uL Hgb 16.2 H (12.0-16.0) g/dL Hct 48.5 H (36.0-46.0) % MCV 91.2 (80.0-98.0) fL MCH 30.5 (27.0-32.0) pg MCHC 33.4 (31.0-37.0) g/dL RDW Std Deviation 47.7 (28.0-62.0) fl RDW Coeff of Anthony 14 (11.0-15.0) % Plt Count 277 (150-400) K/uL MPV 9.80 (7.40-12.00) fL Neut % (Auto) 54.1 (48.0-80.0) % Lymph % (Auto) 34.7 (16.0-40.0) % [place] % (Auto) 9.6 (0.0-15.0) % Eos % (Auto) 1.5 (0.0-7.0) % Baso % (Auto) 0.1 (0.0-1.5) % Neut # (Auto) 3.9 (1.4-5.7) K/uL Lymph # (Auto) 2.5 H (0.6-2.4) K/uL [place] # (Auto) 0.7 (0.0-0.8) K/uL Eos # (Auto) 0.1 (0.0-0.7) K/uL Baso # (Auto) 0.0 (0.0-0.1) K/uL Nucleated RBC % 0.0 /100WBC Nucleated RBCs # 0 K/uL Sodium 143 (136-145) mmol/L Potassium 3.9 (3.5-5.1) mmol/L Chloride 107 (98-107) mmol/L Carbon Dioxide 23.5 (21.0-32.0) mmol/L BUN 8 (7.0-18.0) mg/dL Creatinine 0.7 (0.6-1.0) mg/dL Est Cr Clr Drug Dosing 115.32 mL/min Estimated GFR (MDRD) > 60.0 ml/min Glucose 115 H (74-106) mg/dL Calcium 9.4 (8.5-10.1) mg/dL Magnesium 1.8 (1.8-2.4) mg/dL Total Bilirubin 1.1 H (0.2-1.0) mg/dL AST 108 H (15-37) IU/L ALT 172 H (14-63) IU/L Alkaline Phosphatase 90 (46-116) U/L Total Protein 8.5 H (6.4-8.2) g/dL Albumin 4.0 (3.4-5.0) g/dL Globulin 4.5 H (2.6-4.0) g/dL Albumin/Globulin Ratio 0.9 (0.9-1.6) Lipase 71 L (73-393) U/L Urine Color YELLOW Urine Appearance CLEAR Urine pH 5.5 (5.0-8.0) Ur Specific Desmet >= 1.030 (1.001-1.035) Urine Protein NEGATIVE (NEGATIVE) mg/dL Urine Glucose (UA) NEGATIVE (NEGATIVE) mg/dL Urine Ketones NEGATIVE (NEGATIVE) mg/dL Urine Occult Blood NEGATIVE (NEGATIVE) Urine Nitrite NEGATIVE (NEGATIVE) Urine Bilirubin NEGATIVE (NEGATIVE) Urine Urobilinogen 1.0 (<2.0) EU/dL Ur Leukocyte Esterase NEGATIVE (NEGATIVE) Meds: Medications Discontinued Medications Generic Name Dose Route Start Last Admin Trade Name Freq PRN Reason Stop Dose Admin Sodium Chloride 1,000 mls @ 999 mls/hr 12/11/20 13:06 12/11/20 13:10 Normal Saline IV 12/11/20 14:06 999 mls/hr .BOLUS ONE Administration Iopamidol 100 ml 12/11/20 15:41 12/11/20 15:42 Iopamidol 755 Mg/Ml 500 Ml Multipack Bottle IVPUSH 12/11/20 15:42 100 ml ONETIME STA Administration Ondansetron HCl 4 mg 12/11/20 13:06 12/11/20 13:10 Ondansetron 4 Mg/2 Ml Sdv IVPUSH 12/11/20 13:07 4 mg ONETIME ONE Administration - Re-Assessments/Exams Free Text/Narrative Re-Assessment/Exam: 12/11/20 16:[address] scan reviewed patient made aware of labs and is currently being worked of hepatitis. Patient has follow-up with her PMD and has Zofran at pharmacy from [facility] as well. Patient will be discharged home. Departure - Departure Time of Disposition: 16:26 Disposition: Home, Self-Care 01 Condition: Good Clinical Impression: Nausea - Discharge Information *PRESCRIPTION DRUG MONITORING PROGRAM REVIEWED*: Not Applicable *COPY OF PRESCRIPTION DRUG MONITORING REPORT IN PATIENT MONSE: Not Applicable Instructions: Nausea and Vomiting, Adult Referrals: PCP,None [Primary Care Provider] - Forms: ED Department Discharge Additional Instructions: The following information is given to patients seen in the emergency department who are being discharged to home. This information is to outline your options for follow-up care. We provide all patients seen in our emergency department with a follow-up referral. The need for follow-up, as well as the timing and circumstances, are variable depending upon the specifics of your emergency department visit. If you don't have a primary care physician on staff, we will provide you with a referral. We always advise you to contact your personal physician following an emergency department visit to inform them of the circumstance of the visit and for follow-up with them and/or the need for any referrals to a consulting specialist. The emergency department will also refer you to a specialist when appropriate. This referral assures that you have the opportunity for follow-up care with a specialist. All of these measure are taken in an effort to provide you with optimal care, which includes your follow-up. Under all circumstances we always encourage you to contact your private physician who remains a resource for coordinating your care. When calling for follow-up care, please make the office aware that this follow-up is from your recent emergency room visit. If for any reason you are refused follow-up, please contact the [facility] Emergency Department at and asked to speak to the emergency department charge nurse. Please follow up with your primary care physician. If you do not have a primary care physician, see below: [facility] [address] [place] [id number] [facility] [address] [place] [phone] You were seen today for abdominal pain with nausea vomiting. We did a CAT scan did not show any concerning findings. We also gave you a liter IV fluids for hydration. You are currently being worked up by your primary care physician. Please follow-up with your lab work which are primary care physician. If any other concerning complaints or questions please return to the ED. Sepsis Event Note (ED) - Evaluation Sepsis Screening Result: No Definite Risk - Focused Exam Vital Signs: Vital Signs Temp Pulse Resp BP Pulse Ox 12/11/20 14:00 78 17 120/84 95 12/11/20 13:33 91 15 125/77 98 12/11/20 12:59 98.0 F 94 17 145/96 H 98 - Assessment/Plan Plan: Patient is a 50-year-old female who presents today for nausea vomiting abdominal pain. Will obtain basic labs IV fluids and CT abdomen pelvis.
[2020-12-11 14:02] LABS: BLOOD UREA NITROGEN,BUN 8 mg/dL (7.0-18.0); CARBON DIOXIDE,CO2 23.5 mmol/L (21.0-32.0); CHLORIDE,CL 107 mmol/L (98-107); GLUCOSE RANDOM 115 mg/dL (74-106); LIPASE 71 U/L (73-393); POTASSIUM,K 3.9 mmol/L (3.5-5.1); SODIUM,NA 143 mmol/L (136-145)
[2020-12-11] MEDS ORDERED: Iopamidol 755 MG/ML 500 ML Multipack Bottle IVPUSH STA (15:41)
--- NOTE | 2020-12-11 15:54 | CT ---
INDICATION: Diffuse abdominal pain,nausea and vomiting TECHNIQUE: CT abdomen and pelvis acquired with IV contrast. 100 cc Isovue 370 COMPARISON: 04/20/2020 FINDINGS: Lower chest: Unremarkable. Liver: Hepatic steatosis. Spleen: Unremarkable. Pancreas: Unremarkable. Gallbladder and bile ducts: Cholecystectomy. Kidneys: 2.5 centimeter cyst mid zone left kidney Adrenal glands: Unremarkable. GI tract: Unremarkable. Vascular structures: Unremarkable. Lymph nodes: Unremarkable. Miscellaneous: Unremarkable. No free air or significant free fluid. Pelvic Organs: Unremarkable. Bones: Bilateral L5 pars defects with grade 1 anterolisthesis L5 over S1. IMPRESSION: No definitive findings to explain the patient`s diffuse abdominal pain, nausea and vomiting. Hepatic steatosis. Cholecystectomy. Please note that all CT scans at this facility use dose modulation, iterative reconstruction, and/or weight-based dosing when appropriate to reduce radiation dose to as low as reasonably achievable. Dictated by Temo Romero MD @ 12/11/2020 3:52:[address] Temo Romero @ Dec 11 2020 3:52PM
== END 2020-12-11 16:46 | disposition home or self-care (01) ==
LOC: MW.ED 12:40
DX: R11.2 Nausea with vomiting, unspecified (principal); Z88.5 Allergy status to narcotic agent; Z88.8 Allergy status to other drugs, medicaments and biological substances; Z90.49 Acquired absence of other specified parts of digestive tract
CPT/HCPCS: 36415; 74177; 80053; 81003; 83690; 83735; 85025; 96361; 96374; 99284; J2405; J7030; Q9967; 99283

== ENCOUNTER 2021-04-17 16:26 | Emergency (ER) | payer BC, OTHER | END 2021-04-17 19:05 | disposition left against medical advice (07) | LOC: MW.ED 16:26 | DX: Z53.21 Procedure and treatment not carried out due to patient leaving prior to being seen by health care provider (principal) ==

== ENCOUNTER 2021-06-04 11:53 | Emergency (ER) | payer BC, OTHER ==
--- NOTE | 2021-06-04 12:25 | CR ---
Indication: Foot injury. Patient states pain is anterior, posterior, and lateral. Technique: Right foot 3 views. Comparison: None. Findings: No acute fracture or dislocation. Plantar and Achilles calcaneal spurs. Degenerative changes along the dorsal aspect of talonavicular joint. Mild soft tissue swelling in the forefoot. Impression: Mild soft tissue swelling in the forefoot. No other acute findings. Dictated by Aisha Elizondo MD @ 06/04/2021 12:24:47 PM (Electronically Signed)
--- NOTE | 2021-06-04 13:12 | EDM.PDOC ---
ED HPI GENERAL MEDICAL PROBLEM - General Chief Complaint: Lower Extremity Injury/Pain Stated Complaint: INJURY RIGHT FOOT Time Seen by Provider: 06/04/21 11:56 Source of Information: Reports: Patient History Limitations: Reports: No Limitations - History of Present Illness INITIAL COMMENTS - FREE TEXT/NARRATIVE: 50-year-old female presents for pain in right foot. Patient notes pain in the base of the plantar surface of the foot for over a month which seems to be worsening. She also had an injury a couple of days ago where she rolled the foot and has had pain in the lateral aspect of the dorsum foot. She has been diagnosed with heel bony spur in the past. right foot Pain Score (Numeric/FACES): 5 - Related Data Allergies Allergy/AdvReac Type Severity Reaction Status Date / Time acetaminophen Allergy Vomiting Verified 06/04/21 13:04 [From Tylenol-Codeine #3] aspirin Allergy Vomiting Verified 06/04/21 13:04 codeine Allergy Vomiting Verified 06/04/21 13:04 [From Tylenol-Codeine #3] Home Meds: Home Meds traMADol HCl [Tramadol HCl] 50 mg PO Q6HR PRN 12/06/18 [History] Diclofenac Sodium [Voltaren] 75 mg PO BIDMEALS PRN #30 tab.cr 07/30/20 [Rx] Naproxen 500 mg PO BID PRN #30 tablet 06/04/21 [Rx] Pantoprazole Sodium [Protonix] 40 mg PO DAILY 06/04/21 [History] tiZANidine [Zanaflex] 06/04/21 [History] Past Medical History HEENT History: Reports: Impaired Vision Cardiovascular History: Reports: None Respiratory History: Reports: None Gastrointestinal History: Reports: None Other Gastrointestinal History: Pt states she has a "fatty liver." Genitourinary History: Reports: 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: Musculoskeletal History: Reports: None Other Musculoskeletal History: Chronic Neck Pain Neurological History: Reports: None Psychiatric History: Reports: None Endocrine/Metabolic History: Reports: None Hematologic History: Reports: None Immunologic History: Reports: None Oncologic (Cancer) History: Reports: None - Infectious Disease History Infectious Disease History: Reports: Chicken Pox - Past Surgical History Head Surgeries/Procedures: Reports: None GI Surgical History: Reports: Cholecystectomy, Colonoscopy Female Surgical History: Reports: Section Other Female Surgeries/Procedures: cyst removal. Other Musculoskeletal Surgeries/Procedures:: knee surgery Social & Family History - Family History Family Medical History: No Pertinent Family History - Caffeine Use Caffeine Use: Reports: None Review of Systems - Review of Systems Review Of Systems: Comprehensive ROS is negative, except as noted in HPI. ED EXAM, GENERAL - Physical Exam Exam: See Below Exam Limited By: No Limitations General Appearance: Alert, WD/WN, No Apparent Distress Ears: Hearing Grossly Normal Throat/Mouth: Normal Voice, No Airway Compromise Head: Atraumatic, Normocephalic Neck: Normal Inspection Respiratory/Chest: No Respiratory Distress, No Accessory Muscle Use Cardiovascular: Normal Peripheral Pulses Extremities: Normal Inspection Neurological: Alert, Normal Cognition, Normal Gait Psychiatric: Normal Affect, Normal Mood Skin Exam: Warm, Dry, Intact Course - Vital Signs Last Recorded V/S: Last Vital Signs Temp 98.4 F 06/04/21 13:01 Pulse 88 06/04/21 13:01 Resp 16 06/04/21 13:01 BP 130/72 06/04/21 13:01 Pulse Ox 95 06/04/21 13:01 - Re-Assessments/Exams Free Text/Narrative Re-Assessment/Exam: 06/04/21 13:08 Symptoms are suggestive of plantar fasciitis. No fracture on x-ray. Instructed patient to use a tennis ball to stretch the plantar fascia. Instructed patient to follow-up with podiatry. Departure - Departure Time of Disposition: 13:08 Disposition: Home, Self-Care 01 Condition: Good Clinical Impression: Plantar fasciitis - Discharge Information Instructions: Plantar Fasciitis Rehab[facility] Referrals: Bill Duenas MD [Primary Care Provider] - Additional Instructions: The following information is given to patients seen in the emergency department who are being discharged to home. This information is to outline your options for follow-up care. We provide all patients seen in our emergency department with a follow-up referral. The need for follow-up, as well as the timing and circumstances, are variable depending upon the specifics of your emergency department visit. If you don't have a primary care physician on staff, we will provide you with a referral. We always advise you to contact your personal physician following an emergency department visit to inform them of the circumstance of the visit and for follow-up with them and/or the need for any referrals to a consulting specialist. The emergency department will also refer you to a specialist when appropriate. This referral assures that you have the opportunity for follow-up care with a specialist. All of these measure are taken in an effort to provide you with optimal care, which includes your follow-up. Under all circumstances we always encourage you to contact your private physician who remains a resource for coordinating your care. When calling for follow-up care, please make the office aware that this follow-up is from your recent emergency room visit. If for any reason you are refused follow-up, please contact the [facility] Emergency Department at and asked to speak to the emergency department charge nurse. Please follow up with your primary care physician. If you do not have a primary care physician, see below: [facility] [address] [place] [phone] [facility] [address] [place] [phone] [facility] [address] [place] [phone] Sepsis Event Note (ED) - Evaluation Sepsis Screening Result: No Definite Risk - Focused Exam Vital Signs: Vital Signs Temp Pulse Resp BP Pulse Ox 06/04/21 13:01 98.4 F 88 16 130/72 95
== END 2021-06-04 13:25 | disposition home or self-care (01) ==
LOC: MW.ED 11:53
DX: M72.2 Plantar fascial fibromatosis (principal); Z88.5 Allergy status to narcotic agent; Z88.6 Allergy status to analgesic agent
CPT/HCPCS: 73630-26-RT; 73630-RT; 99283-25

== ENCOUNTER 2022-06-20 07:53 | Observation (INO) | payer BC ==
[2022-06-20] MEDS ORDERED: Fluorescein 5 ML Vial ONE (07:59)
[2022-06-20] MEDS ORDERED: Propofol 200 MG/20 ML SDV ONE (08:00)
[2022-06-20] MEDS ORDERED: fentaNYL 100 MCG/2 ML SDV ONE (08:01)
[2022-06-20] MEDS ORDERED: Albuterol 0.083% 2.5 MG/3 ML Neb Soln NEB PRN (08:37)
[2022-06-20] MEDS ORDERED: fentaNYL 50 MCG/ML SDV IVPUSH PRN (08:37)
[2022-06-20] MEDS ORDERED: Naloxone 0.4 MG/ML SDV IVPUSH PRN (08:37)
[2022-06-20] MEDS ORDERED: HYDROmorphone 1 MG/ML Syringe IVPUSH PRN (08:37)
[2022-06-20] MEDS ORDERED: Morphine 2 MG/ML SYRINGE IVPUSH PRN (08:37)
[2022-06-20] MEDS ORDERED: Metoclopramide 10 MG/2 ML SDV IVPUSH PRN (08:37)
[2022-06-20] MEDS ORDERED: Ondansetron 4 MG/2 ML SDV IVPUSH PRN (08:37)
[2022-06-20] MEDS ORDERED: Lactated Ringers 1,000 ML IV SCH (08:45)
[2022-06-20] MEDS ORDERED: Ketorolac 30 MG/ML SDV ONE (09:33)
[2022-06-20] MEDS ORDERED: Sugammadex Sodium 200 MG/2 ML VIAL ONE ×2 (09:33→09:45)
[2022-06-20] MEDS ORDERED: Ondansetron 4 MG/2 ML SDV ONE (09:33)
[2022-06-20] MEDS ORDERED: Rocuronium Bromide 50 MG/5 ML Syringe ONE ×2 (09:33→09:38)
[2022-06-20] MEDS ORDERED: Dexamethasone 4 MG/ML 5 ML MDV ONE (09:33)
[2022-06-20] MEDS ORDERED: Lidocaine 2% 5 ML SDV ONE (09:37)
[2022-06-20] MEDS ORDERED: Belladonna Alkaloids/Opium 16.2-30 MG Supp RECTAL ONE (10:50)
[2022-06-20] MEDS ORDERED: Furosemide 20 MG/2 ML VIAL IVPUSH ONE (13:30)
[2022-06-20] MEDS ORDERED: Furosemide 20 MG/2 ML VIAL ONE (13:38)
== END 2022-06-21 14:15 | disposition home or self-care (01) ==
LOC: MW.SDS 07:53 → MW.MS 14:40 → MW.SDS 15:45 → MW.MS 15:45
PROVIDERS: ADMIT Obstetrics & Gynecology; ATTEND Obstetrics & Gynecology
DX: N39.46 Mixed incontinence (principal); K21.9 Gastro-esophageal reflux disease without esophagitis; F41.9 Anxiety disorder, unspecified; F32.A Depression, unspecified; D64.9 Anemia, unspecified; K76.0 Fatty (change of) liver, not elsewhere classified; E66.9 Obesity, unspecified; M19.90 Unspecified osteoarthritis, unspecified site; Z79.899 Other long term (current) drug therapy; Z87.891 Personal history of nicotine dependence; Z88.5 Allergy status to narcotic agent; Z88.6 Allergy status to analgesic agent; Z90.49 Acquired absence of other specified parts of digestive tract; Z98.890 Other specified postprocedural states
CPT/HCPCS: 57288; A9270; C1771; G0378; J0131; J1100; J1940; J2405; J2704; J3010; J3490; J7120; 00860; J1885

== ENCOUNTER 2022-06-27 10:51 | Emergency (ER) | payer BC ==
[2022-06-27 12:00] LABS: CORONAVIRUS COVID-19 NAA POSITIVE (NEGATIVE); INFLUENZA A NAA NEGATIVE (NEGATIVE); INFLUENZA B NAA NEGATIVE (NEGATIVE)
[2022-06-27 12:57] LABS: CARBON DIOXIDE,CO2 27.5 mmol/L (21.0-32.0); POTASSIUM,K 3.8 mmol/L (3.5-5.1)
[2022-06-27] MEDS ORDERED: Iopamidol 755 MG/ML 500 ML Multipack Bottle IVPUSH ONE (13:56)
[2022-06-27] MEDS ORDERED: Ketorolac 30 MG/ML SDV IVPUSH ONE (15:34)
== END 2022-06-27 16:07 | disposition home or self-care (01) ==
LOC: MW.ED 10:51
DX: U07.1 COVID-19 (principal); R07.9 Chest pain, unspecified; E66.9 Obesity, unspecified; Z88.5 Allergy status to narcotic agent; Z88.8 Allergy status to other drugs, medicaments and biological substances; Z68.41 Body mass index [BMI] 40.0-44.9, adult
CPT/HCPCS: 0240U; 36415; 71045; 71275; 80053; 81001; 84484; 85025; 85379; 87086; 93005; 96374; 99285; J1885; Q9967

== ENCOUNTER 2024-02-05 15:35 | Emergency (ER) | payer BC, OTHER ==
[2024-02-05] MEDS: Sodium Chloride 0.9% 1,000 ML IV STA (16:41)
[2024-02-05] MEDS: Metoclopramide 10 MG/2 ML SDV IVPUSH STA (16:45)
[2024-02-05] MEDS: diphenhydrAMINE 50 MG/ML SDV IVPUSH STA (16:45)
[2024-02-05 16:52] LABS: BASOPHILS ABSOLUTE AUTO 0.05 K/uL (0.00-0.20); BASOPHILS PERCENT AUTO 0.8 % (0.0-1.0); EOSINOPHILS ABSOLUTE AUTO 0.17 K/uL (0.00-0.45); EOSINOPHILS PERCENT AUTO 2.7 % (0.0-6.0); HEMATOCRIT 42.9 % (37.0-47.0); HEMOGLOBIN 14.7 g/dL (12.0-16.0); IMMATURE GRAN ABSOLUTE AUTO 0.02 K/uL (0.00-0.05); IMMATURE GRAN PERCENT AUTO 0.3 % (0.0-0.4); LYMPHOCYTES ABSOLUTE AUTO 2.25 K/uL (1.00-4.80); LYMPHOCYTES PERCENT AUTO 35.8 % (24.0-44.0); MEAN CORPUSCULAR HEMOGLOBIN 31.1 pg (28.0-32.0); MEAN CORPUSCULAR HGB CONC 34.3 g/dL (32.0-36.0); MEAN CORPUSCULAR VOLUME 90.9 fL (83.0-99.0); MEAN PLATELET VOLUME 9.3 fL (9.4-12.3); MONOCYTES ABSOLUTE AUTO 0.55 K/uL (0.00-0.80); MONOCYTES PERCENT AUTO 8.8 % (0.0-8.0); NEUTROPHILS ABSOLUTE AUTO 3.24 K/uL (1.80-7.70); NEUTROPHILS PERCENT AUTO 51.6 % (41.0-71.0); PLATELET COUNT,PLT 255 K/uL (150-400); RED BLOOD CELL COUNT 4.72 M/uL (4.10-5.30); WHITE BLOOD CELL COUNT,WBC 6.28 K/uL (3.9-11.3)
[2024-02-05 17:12] LABS: INR 1.13 (0.86-1.11); PTT,PARTIAL THROMBOPLSTIN TIME 27.7 SEC (23.9-30.7)
[2024-02-05 17:21] LABS: A/G RATIO 0.9 (0.9-1.6); ALBUMIN 3.6 g/dL (3.4-5.0); BILIRUBIN TOTAL 0.2 mg/dL (0.2-1.0); CALCIUM 9.3 mg/dL (8.5-10.1); CARBON DIOXIDE,CO2 27.6 mmol/L (21.0-32.0); CREATININE 0.7 mg/dL (0.6-1.0); EST CRCL DRUG DOSING (CG) 108.09 mL/min; POTASSIUM,K 4.1 mmol/L (3.5-5.1); PROTEIN TOTAL,TP 7.8 g/dL (6.4-8.2)
[2024-02-05 17:26] LABS: MAGNESIUM 1.9 mg/dL (1.8-2.4)
== END 2024-02-05 19:32 | disposition home or self-care (01) ==
LOC: MW.ED 15:35
DX: R07.9 Chest pain, unspecified (principal); R51.9 Headache, unspecified; E66.9 Obesity, unspecified; Z75.8 Other problems related to medical facilities and other health care; Z68.39 Body mass index [BMI] 39.0-39.9, adult
CPT/HCPCS: 36415; 70450; 71046; 80053; 83690; 83735; 84484; 85025; 85610; 85730; 93005; 96361; 96374; 96375; 99285; J1200; J2765; J7030; 93010; 99284

== ENCOUNTER 2024-02-27 00:34 | Emergency (ER) | payer BC, OTHER ==
[2024-02-27 01:18] LABS: BASOPHILS ABSOLUTE AUTO 0.03 K/uL (0.00-0.20); BASOPHILS PERCENT AUTO 0.3 % (0.0-1.0); EOSINOPHILS ABSOLUTE AUTO 0.13 K/uL (0.00-0.45); EOSINOPHILS PERCENT AUTO 1.4 % (0.0-6.0); HEMATOCRIT 43.8 % (37.0-47.0); HEMOGLOBIN 14.9 g/dL (12.0-16.0); IMMATURE GRAN ABSOLUTE AUTO 0.02 K/uL (0.00-0.05); IMMATURE GRAN PERCENT AUTO 0.2 % (0.0-0.4); LYMPHOCYTES ABSOLUTE AUTO 2.27 K/uL (1.00-4.80); LYMPHOCYTES PERCENT AUTO 25.3 % (24.0-44.0); MEAN CORPUSCULAR HEMOGLOBIN 30.4 pg (28.0-32.0); MEAN CORPUSCULAR VOLUME 89.4 fL (83.0-99.0); MEAN PLATELET VOLUME 9.6 fL (9.4-12.3); MONOCYTES ABSOLUTE AUTO 0.73 K/uL (0.00-0.80); MONOCYTES PERCENT AUTO 8.1 % (0.0-8.0); NEUTROPHILS ABSOLUTE AUTO 5.79 K/uL (1.80-7.70); NEUTROPHILS PERCENT AUTO 64.7 % (41.0-71.0); PLATELET COUNT,PLT 240 K/uL (150-400); WHITE BLOOD CELL COUNT,WBC 8.97 K/uL (3.9-11.3)
[2024-02-27 01:39] LABS: CORONAVIRUS COVID-19 NAA NEGATIVE (NEGATIVE); INFLUENZA A NAA NEGATIVE (NEGATIVE); INFLUENZA B NAA NEGATIVE (NEGATIVE); RESPIRATORY SYNCYTIAL VIR NAA NEGATIVE (NEGATIVE)
[2024-02-27 01:42] LABS: D-DIMER QUANTITATIVE 1.06 mg/L FEU (0.00-0.50); INR 1.2 (0.86-1.11)
[2024-02-27 02:00] LABS: A/G RATIO 1.1 (0.9-1.6); ALANINE AMINOTRANSFERASE,ALT 29 IU/L (14-63); ALBUMIN 4.3 g/dL (3.4-5.0); ALKALINE PHOSPHATASE 76 U/L (46-116); ASPARTATE AMNIOTRANSFERASE,AST 20 IU/L (15-37); BILIRUBIN TOTAL 0.5 mg/dL (0.2-1.0); BLOOD UREA NITROGEN,BUN 14 mg/dL (7.0-18.0); CALCIUM 9.5 mg/dL (8.5-10.1); CARBON DIOXIDE,CO2 24.8 mmol/L (21.0-32.0); CHLORIDE,CL 101 mmol/L (98-107); CREATININE 0.6 mg/dL (0.6-1.0); GLUCOSE RANDOM 107 mg/dL (74-106); POTASSIUM,K 3.9 mmol/L (3.5-5.1); PROTEIN TOTAL,TP 8.1 g/dL (6.4-8.2); SODIUM,NA 136 mmol/L (136-145); TSH ULTRASENSITIVE 1.74 uIU/mL (0.36-3.74)
[2024-02-27 02:03] LABS: ESTIMATED GFR 106 mL/min (>60)
[2024-02-27] MEDS: Sodium Chloride 0.9% 2.5 ML Syringe FLUSH PRN (02:20)
[2024-02-27] MEDS: Sodium Chloride 0.9% 10 ML Syringe FLUSH PRN (02:20)
[2024-02-27] MEDS: Iopamidol 755 MG/ML 500 ML Multipack Bottle IVPUSH ONE (02:35)
[2024-02-27 03:41] LABS: APPEARANCE,URINE CLEAR; BILIRUBIN,URINE NEGATIVE (NEGATIVE); COLOR,URINE YELLOW; GLUCOSE,URINE NEGATIVE (NEGATIVE); KETONES,URINE NEGATIVE (NEGATIVE); LEUKOCYTE ESTERASE,URINE NEGATIVE (NEGATIVE); NITRITE,URINE NEGATIVE (NEGATIVE); OCCULT BLOOD,URINE NEGATIVE (NEGATIVE); PROTEIN,URINE NEGATIVE (NEGATIVE)
[2024-02-27] MEDS: Ondansetron 4 MG/2 ML SDV IVPUSH ONE (03:57)
[2024-02-27] MEDS: EPINEPHrine 1 MG/1 ML Amp IM ONE (04:06)
[2024-02-27] MEDS: Ampicillin/Sulbactam Na 3 GM in Sodium Chloride 0.9% 100 ML IV ONE (04:09)
[2024-02-27] MEDS: Famotidine 20 MG/2 ML SDV IVPUSH ONE (04:09)
[2024-02-27] MEDS: diphenhydrAMINE 50 MG/ML SDV IVPUSH ONE (04:09)
[2024-02-27] MEDS: Dexamethasone 4 MG/ML SDV IVPUSH ONE (04:10)
[2024-02-27] MEDS: methylPREDNISolone Sodium Succinate 125 MG/2 ML SDV IVPUSH ONE (04:36)
[2024-02-27] MEDS: Lidocaine 2% 5 ML SDV INJECT ONE (05:25)
[2024-02-27] MEDS: propofoL 100 ML IV SCH (05:44)
[2024-02-27] MEDS: Propofol 200 MG/20 ML SDV IVPUSH ONE ×2 (05:55→06:15)
[2024-02-27] MEDS: Succinylcholine 200 MG/10 ML MDV IVPUSH STA (05:55)
[2024-02-27] MEDS: Benzocaine 20% Topical Spray UD MUCMEM ONE (05:55)
[2024-02-27] MEDS: Ketamine 500 mg/10 ML MDV IV ONE (05:55)
[2024-02-27] MEDS: Rocuronium 100 MG/10 ML MDV IVPUSH ONE (05:56)
[2024-02-27] MEDS: Midazolam 1 MG/ML 2 ML SDV IVPUSH ONE (05:57)
[2024-02-27] MEDS: fentaNYL 50 MCG/ML SDV IVPUSH ONE (06:23)
[2024-02-27] MEDS: Rocuronium 50 MG/5 ML Vial IVPUSH ONE (06:25)
[2024-02-27] MEDS: fentaNYL 50 MCG/ML SDV ONE (07:22)
[2024-02-27] MEDS: Midazolam 1 MG/ML 2 ML SDV ONE (07:22)
== END 2024-02-27 07:10 | disposition home or self-care (01) ==
LOC: MW.ED 00:34
DX: J98.8 Other specified respiratory disorders (principal); E66.9 Obesity, unspecified; Z68.41 Body mass index [BMI] 40.0-44.9, adult; Z79.899 Other long term (current) drug therapy; Z88.8 Allergy status to other drugs, medicaments and biological substances; Z91.018 Allergy to other foods; Z88.5 Allergy status to narcotic agent
CPT/HCPCS: 0241U; 31500; 36415; 70491; 71045; 71275; 80053; 81003; 84443; 84484; 85025; 85379; 85610; 87651; 93005; 96365; 96372; 96375; 99285; A9270; J0171; J0295; J0330; J1100; J1200; J2250; J2405; J2704; J3010; J3490; Q9967; 93010; 99291

== ENCOUNTER 2024-09-13 04:13 | Emergency (ER) | payer OTHER ==
[2024-09-13] MEDS: diphenhydrAMINE 25 MG Cap PO ONE (04:41)
[2024-09-13] MEDS: Metoclopramide 10 MG/2 ML SDV IM ONE (04:41)
[2024-09-13] MEDS: Acetaminophen 500 MG Tab PO ONE (04:44)
[2024-09-13] MEDS: Ketorolac 10 MG Tab PO ONE (05:00)
== END 2024-09-13 06:11 | disposition home or self-care (01) ==
LOC: MW.ED 04:13
DX: J10.1 Influenza due to other identified influenza virus with other respiratory manifestations (principal); G43.909 Migraine, unspecified, not intractable, without status migrainosus; E66.9 Obesity, unspecified; Z68.38 Body mass index [BMI] 38.0-38.9, adult; Z90.49 Acquired absence of other specified parts of digestive tract; Z88.5 Allergy status to narcotic agent; Z88.6 Allergy status to analgesic agent; Z91.018 Allergy to other foods; Z79.890 Hormone replacement therapy; Z79.899 Other long term (current) drug therapy
CPT/HCPCS: 87428; 96372; 99284; A9270; J2765

== ENCOUNTER 2025-02-14 09:32 | Emergency (ER) | payer OTHER ==
[2025-02-14 09:54] LABS: BASOPHILS ABSOLUTE AUTO 0.03 K/uL (0.00-0.20); BASOPHILS PERCENT AUTO 0.6 % (0.0-1.0); EOSINOPHILS ABSOLUTE AUTO 0.15 K/uL (0.00-0.45); EOSINOPHILS PERCENT AUTO 2.8 % (0.0-6.0); HEMATOCRIT 42.9 % (37.0-47.0); HEMOGLOBIN 14.6 g/dL (12.0-16.0); IMMATURE GRAN ABSOLUTE AUTO 0.01 K/uL (0.00-0.05); IMMATURE GRAN PERCENT AUTO 0.2 % (0.0-0.4); LYMPHOCYTES ABSOLUTE AUTO 2.37 K/uL (1.00-4.80); LYMPHOCYTES PERCENT AUTO 43.9 % (24.0-44.0); MEAN CORPUSCULAR HEMOGLOBIN 30.8 pg (28.0-32.0); MEAN CORPUSCULAR VOLUME 90.5 fL (83.0-99.0); MEAN PLATELET VOLUME 9.1 fL (9.4-12.3); MONOCYTES ABSOLUTE AUTO 0.61 K/uL (0.00-0.80); MONOCYTES PERCENT AUTO 11.3 % (0.0-8.0); NEUTROPHILS ABSOLUTE AUTO 2.23 K/uL (1.80-7.70); NEUTROPHILS PERCENT AUTO 41.2 % (41.0-71.0); PLATELET COUNT,PLT 221 K/uL (150-400); RED BLOOD CELL COUNT 4.74 M/uL (4.10-5.30)
[2025-02-14] MEDS: Sodium Chloride 0.9% 250 ML IV SCH (10:06)
[2025-02-14 10:18] LABS: A/G RATIO 1.1 (0.9-1.6); ALANINE AMINOTRANSFERASE,ALT 33 IU/L (14-63); ALBUMIN 3.8 g/dL (3.4-5.0); ALKALINE PHOSPHATASE 84 U/L (46-116); ASPARTATE AMNIOTRANSFERASE,AST 20 IU/L (15-37); BILIRUBIN TOTAL 0.4 mg/dL (0.2-1.0); BLOOD UREA NITROGEN,BUN 18 mg/dL (7.0-18.0); CALCIUM 9.1 mg/dL (8.5-10.1); CARBON DIOXIDE,CO2 31.4 mmol/L (21.0-32.0); CHLORIDE,CL 101 mmol/L (98-107); CREATININE 0.8 mg/dL (0.6-1.0); EST CRCL DRUG DOSING (CG) 93.46 mL/min; ESTIMATED GFR 86 mL/min (>60); GLUCOSE RANDOM 104 mg/dL (74-106); PROTEIN TOTAL,TP 7.2 g/dL (6.4-8.2); SODIUM,NA 141 mmol/L (136-145)
== END 2025-02-14 11:38 | disposition home or self-care (01) ==
LOC: MW.ED 09:32
DX: R07.9 Chest pain, unspecified (principal); E66.9 Obesity, unspecified; Z88.6 Allergy status to analgesic agent; Z88.5 Allergy status to narcotic agent; Z88.8 Allergy status to other drugs, medicaments and biological substances; Z91.048 Other nonmedicinal substance allergy status; Z79.899 Other long term (current) drug therapy; Z79.890 Hormone replacement therapy; Z90.49 Acquired absence of other specified parts of digestive tract
CPT/HCPCS: 36415; 71045; 80053; 84484; 85025; 93005; 99285; J7050; 93010; 99284

== ENCOUNTER 2025-03-10 17:02 | Emergency (ER) | payer OTHER | END 2025-03-10 19:05 | disposition home or self-care (01) | LOC: MW.ED 17:02 | DX: R60.0 Localized edema (principal); E03.9 Hypothyroidism, unspecified; E66.9 Obesity, unspecified; Z75.3 Unavailability and inaccessibility of health-care facilities; Z90.49 Acquired absence of other specified parts of digestive tract; Z79.899 Other long term (current) drug therapy; Z88.5 Allergy status to narcotic agent; Z88.8 Allergy status to other drugs, medicaments and biological substances; Z88.6 Allergy status to analgesic agent; Z79.890 Hormone replacement therapy; Z68.41 Body mass index [BMI] 40.0-44.9, adult | CPT/HCPCS: 93971-26-LT; 93971-LT; 99282; 99283 ==